=== PATIENT | female | born 1975 | race Caucasian/White ===

== ENCOUNTER 2020-02-14 09:36 | Outpatient (CLI) | payer SELFPAY ==
--- NOTE | 2020-02-14 09:45 | MM_ITS ---
WS: [id number] DIAGNOSTIC BILATERAL DIGITAL MAMMOGRAM WITH CAD RIGHT breast ultrasound, limited HISTORY: RT BREAST LUMP 10-11 O'CLOCK COMPARISON: 01/11/2018 and 09/28/2016 TECHNIQUE: Bilateral craniocaudad, mediolateral oblique, and mediolateral views are submitted. Spot c ompression RIGHT CC and MLO. Computer aided detection utilized. Breast composition: The breasts are extremely dense, which lowers the sensitivity of mammography. Pal pable marker is placed upper outer quadrant of the RIGHT breast. There is underlying dense fibrogland ular tissue. There are benign calcifications in each breast. No distortion. RIGHT breast ultrasound, limited. Ultrasound directed to the 10:00 location, 2 cm from the nipple. There is an anechoic mass measuring 2.0 x 1.5 x 1.5 cm. No solid component. Consistent with a benign cyst. No increased vascularity. German tional mildly hypoechoic nodule is ovoid and 9:00, 5 cm from the nipple with a maximum diameter of 1. 0 cm. This may be benign lymph node or complex cyst. MM/[id number] IMPRESSION: BI-RADS: 2-Benign FOLLOW UP: 1 Year Follow-up
== END 2020-02-14 09:37 | disposition home or self-care (01) ==
LOC: RADSHAW 09:40
PROVIDERS: Visit Provider Nurse Practitioner Family
DX: N63.11 Unspecified lump in the right breast, upper outer quadrant (principal)
CPT/HCPCS: 76642; 77066

== ENCOUNTER 2020-04-26 17:19 | Emergency (ER) | payer SELFPAY ==
[2020-04-26 17:22] VITALS: BP 140/84; PULSE 76; RESP 18; TEMP 36.4; O2SAT 99; BMI 24.8
--- NOTE | 2020-04-26 17:52 | W.ED.EXTPRO ---
HPI - Extremity Problem General: Chief complaint: Extremity Injury, Upper Stated complaint: l side keeps going numb x 3 days Time Seen by Provider: 04/26/20 17:35 History of Present Illness: HPI Narrative: 44-year-old female complains of generalized stiffness and aching predominantly left arm and leg but at times it is both legs. She has had this for months she has been going to the [facility] she feels like it is not really getting any better and probably getting worse. She said she had a positive HAKEEM at the [facility] but has not had any further work-up. She has been using nonsteroidals for but they are not adequate at this point. MD Complaint: extremity pain Onset (ago): month(s) Pain Consistency: constant Location: upper extremity and lower extremity Quality: aching and constant Radiation: none Relieving factors: nothing Exacerbating factors: nothing Associated symptoms: Reports arthralgias and myalgias; Deny chest pain, fever(s), rash or short of breath Review of Systems Const: Denies: fever(s) ENMT: Denies: throat pain, ear or mastoid pain, nasal discharge or nasal congestion Card: Denies: chest pain Resp: Denies: dyspnea, productive cough or non-productive cough GI: Denies: abdominal pain, nausea, vomiting, hematemesis, coffee ground emesis, diarrhea, constipation, bloating, hematochezia or melena : Denies: flank pain, difficulty voiding, dysuria, urinary frequency or urinary urgency Skin/Breast: Denies: rash Physical Exam Const: COMMON NORMALS: no acute distress GENERAL APPEARANCE: cooperative and comfortable ORIENTATION/CONSCIOUSNESS: Yes awake, Yes oriented to person, Yes oriented to place and Yes oriented to time HENMT: COMMON NORMALS: normocephalic, atraumatic and hearing grossly normal bilaterally HEAD & SCALP: normocephalic and atraumatic Eye: COMMON NORMALS: Equal, round and reactive pupils present, EOMs intact bilaterally, conjunctivae normal and no scleral icterus CONJUNCTIVA: Yes conjunctivae normal PUPIL: Yes Equal, round and reactive pupils present Neck/C-Spine: COMMON NORMALS: full ROM, no lymphadenopathy, supple and no JVD Lymph: LYMPHATIC: no lymphadenopathy noted and no lymphedema noted Resp: COMMON NORMALS: normal respiratory effort, No retractions, No use of accessory muscles and clear to auscultation bilaterally AUSCULTATION: clear to auscultation bilaterally Cardio: COMMON NORMALS: no JVD, regular rate, regular rhythm and No murmurs present (Cardio) RATE: regular rate RHYTHM: regular rhythm GI: COMMON NORMALS: Soft to palpation and No hepatosplenomegaly present AUSCULTATION: Yes normoactive bowel sounds PALPATION: Yes Soft to palpation, No Tenderness to palpation present (GI), No Guarding due to palpation present (GI) and Yes No hepatosplenomegaly present Extremity: COMMON NORMALS: normal to inspection, capillary refill normal, no clubbing, cyanosis or edema, no calf tenderness and no pedal edema Neuro: SENSORIUM/ORIENTATION: Yes oriented to person, Yes oriented to place and Yes oriented to time OTHER: Sensation bilaterally upper and lower extremities normal deep tendon reflexes +2/4 patellar and Achilles biceps triceps and brachial radialis sensation normal crusher tender strength normal intrinsic hand strength upper extremity strength is normal examination of the left shoulder there is no impingement sign. Skin: COMMON NORMALS: no rashes or lesions noted GENERAL SKIN EXAM: no rashes or lesions noted Course Vital Signs: Vital signs: Vital Signs Temperature 97.5 F L 04/26/20 17:22 Pulse Rate 76 04/26/20 17:22 Respiratory Rate 18 04/26/20 17:22 Blood Pressure 140/84 04/26/20 17:22 Pulse Oximetry 99 04/26/20 17:22 MDM - Extremity (Nontraumatic) MDM Narrative: Medical decision making narrative: We will start the patient on Medrol Dosepak also use Zanaflex as needed can continue the nonsteroidals case management to refer to rheumatology clinic. This is been a longstanding problem she is just become frustrated with what she feels like is progression of it she has no acute aspect of this no focal neurologic deficits. Discharge Plan Discharge Patient Disposition: Home Clinical Impression: Osteoarthritis, Elevated antinuclear antibody (HAKEEM) level Condition: Stable Prescriptions: New Medrol (Kemar) 4 mg tablets,dose pack See Rx Instructions .ROUTE .COMPLEX Qty: 21 RF: 0 Zanaflex 2 mg capsule 2 mg PO Q6H PRN (Reason: muscle spasticity) Qty: 20 RF: 0 Discharge Orders: Discharge Order (Routine); Ordered 04/26/20 Ordered By: Art Brush Discharge Activity: Increase activity as tolerated Activity Restrictions/Additional Instructions: Case management will call to help you get referred to the rheumatology clinic. Coding Level of Care Code ED Solar Pool Heating Installer for Barbie Saul
--- NOTE | 2020-04-28 12:53 | DCPLANNER ---
manager interventional had message to schedule a follow up appointment for patient with rheumatology. manager interventional called the rheumatolgy clinic, spoke with NATASHA, was asked to fax referral to clinic. manager interventional faxed patients information to clinic. Clinic will call patient with appointment information.
--- NOTE | 2020-05-07 13:00 | DCPLANNER ---
lab manager called the rheumotology clinic to see where referral was at, correctional casework specialist was told that patients information was being reviewed by physician.
--- NOTE | 2020-05-29 12:52 | DCPLANNER ---
engineering program manager called the Rheumotolgy office to confirm that a follow up appointment had been scheduled for patient. engineering program manager was told that when clinic called patient to schedule an appointment, that patient declined the referral.
== END 2020-04-26 18:06 | disposition home or self-care (01) ==
PROVIDERS: Emergency Provider Family Medicine
DX: M19.90 Unspecified osteoarthritis, unspecified site (principal); R79.89 Other specified abnormal findings of blood chemistry
CPT/HCPCS: 12345; 99281

== ENCOUNTER → 2020-05-05 13:16 | Outpatient (BNVA) | payer OTHER, SELFPAY | PROVIDERS: Visit Provider Nurse Practitioner Family | DX: Z20.828 Contact with and (suspected) exposure to other viral communicable diseases (principal); B34.9 Viral infection, unspecified; J06.9 Acute upper respiratory infection, unspecified | CPT/HCPCS: 87635 ==

== ENCOUNTER 2020-05-16 10:42 | Emergency (ER) | payer SELFPAY ==
[2020-05-16 11:06] VITALS: BP 114/76; PULSE 82; RESP 16; TEMP 36.2; O2SAT 98; BMI 25.2
[2020-05-16 11:24] VITALS: O2SAT 98
--- NOTE | 2020-05-16 11:29 | CT_ITS ---
WS: [id number] CT HEAD NONCONTRAST HISTORY: migraine headache with covid, persistent TECHNIQUE: Contiguous axial imaging performed through the brain in 2.5 mm imaging. Bone and soft tiss ue windows. Sagittal and coronal reformats reviewed. All CT scans at [facility] use at le ast one of these dose optimization techniques: automated exposure control; mA and/or kV adjustment pe r patient size (includes targeted exams where dose is matched to clinical indication); or iterative r econstruction. DLP: 764.81 mGy.cm COMPARISON: 03/14/2008 No acute intracranial hemorrhage, midline shift or mass effect. No atrophy or prior infarcts or herniation. Ventricles: Normal size with no hydrocephalus. Paranasal sinuses: As visualized are clear. Mastoid air cells: Well pneumatized. Calvarium and scalp: Skull is intact with no soft tissue edema or swelling. CT/CT head wo con* [id number] IMPRESSION: Negative head CT.
--- NOTE | 2020-05-16 11:33 | W.ED.HA ---
HPI - Headache General: Chief Complaint: Headache Stated Complaint: requesting CT scan for migraines Time Seen by Provider: 05/16/20 11:07 Source: patient Mode of arrival: ambulatory Limitations: no limitations History of Present Illness: HPI Narrative: Patient is a 44-year-old female with a history of migraines who presents to the emergency department with migraine. Symptoms are started for the last 14 days and at the time she was also tested for COVID-19 and was positive. Usually her headaches improve with migraine medication or ibuprofen but this is not working. The ibuprofen helps but never gets rid of the headache and it only gets worse as the day goes by. Headaches are associated with facial numbness and blurred vision. Because of this she was asked to be seen in the emergency department a few days ago but the patient only came back today. MD elicited complaint: headache and migraine Pertinent past history: migraines Onset (ago): day(s) (14) Onset description: gradually Location: diffuse Severity: moderate Quality & Timing: pulsatile Exacerbating factors: none, light and noise Relieving factors: nothing Context: occurred at rest Associated symptoms: Reports loss of vision (blurred vision), nausea, numbness (facial), photophobia and sound sensitivity; Deny chest pain, confusion, cough, diaphoresis, eye pain, eye redness, fever(s), lightheadedness, malaise, neck stiffness, paresthesias, pre-syncope, rash, seizures, short of breath, syncope, vomiting or weakness Treatments prior to arrival: acetaminophen, ibuprofen and migraine medication Review of Systems General: Reports: 10 or more systems reviewed and unremarkable except in HPI and below Const: Denies: fever(s), malaise or diaphoresis Eyes: Denies: change in vision or blurry vision ENMT: Denies: throat pain, enlarged tonsils, odynophagia, hoarseness, mouth pain or swelling of lips/tongue Card: Denies: chest pain, lightheadedness, syncope or pre-syncope Resp: Denies: dyspnea, productive cough or non-productive cough GI: Reports: nausea; Denies: vomiting : Denies: flank pain, difficulty voiding, dysuria, urinary frequency, urinary urgency or urinary hesitancy Musc: Denies: neck pain, back pain or extremity swelling Skin/Breast: Denies: rash Neuro: Denies: confusion Endo: Denies: polyuria, polydipsia or tired all the time PFSH ED PFSH: Social History Smoking and tobacco status: current every day smoker Alcohol intake: never Substance/Drug Use: former Physical Exam Const: COMMON NORMALS: no acute distress, average body habitus, patient oriented x3, no limitations, healthy appearing, alert and well nourished HENMT: COMMON NORMALS: normocephalic, atraumatic and moist oral mucous membranes HEAD & SCALP: normocephalic and atraumatic Eye: COMMON NORMALS: Equal, round and reactive pupils present, EOMs intact bilaterally, conjunctivae normal and no scleral icterus CONJUNCTIVA: Yes conjunctivae normal PUPIL: Yes Equal, round and reactive pupils present DIRECT OPHTHALMOSCOPY: Yes photophobia Neck/C-Spine: COMMON NORMALS: full ROM, supple, no meningeal signs, no JVD and No carotid bruits Resp: COMMON NORMALS: normal respiratory effort, No retractions, No use of accessory muscles, clear to auscultation bilaterally and percussion normal AUSCULTATION: clear to auscultation bilaterally PERCUSSION: percussion normal Cardio: COMMON NORMALS: no JVD, regular rate, regular rhythm, S1 normal heart sound present, S2 normal heart sound present, No gallops present (Cardio), No clicks present (Cardio), No murmurs present (Cardio), No rub (Cardio) and Peripheral pulses 2+ throughout RATE: regular rate RHYTHM: regular rhythm HEART SOUNDS: S1 normal heart sound present and S2 normal heart sound present PERIPHERAL PULSES: Peripheral pulses 2+ throughout GI: COMMON NORMALS: Normal to inspection, nondistended, normoactive bowel sounds present, Soft to palpation, non-tender, No hepatosplenomegaly present, no masses and no bruits PALPATION: Yes Soft to palpation and Yes No hepatosplenomegaly present Extremity: COMMON NORMALS: normal to inspection, full ROM, capillary refill normal, no calf tenderness and no pedal edema Neuro: COMMON NORMALS: patient oriented x3 SENSORIUM/ORIENTATION: Yes alert MENINGEAL SIGNS: Yes no meningeal signs Skin: COMMON NORMALS: no rashes or lesions noted, no wounds, turgor normal, no jaundice, no petechiae and no mottling GENERAL SKIN EXAM: no rashes or lesions noted and turgor normal Course Reevaluation(s): Reevaluation #1: Patient seen. Headache has resolved. Discussed her lab and imaging findings with her. Negative head CT, labs unremarkable. We will discharge her home with no new orders. She voiced understanding and is in agreement with the plan. Time: 14:21 Vital Signs: Vital signs: Vital Signs Temperature 97.2 F L 05/16/20 11:06 Pulse Rate 82 05/16/20 11:06 Respiratory Rate 16 05/16/20 11:06 Blood Pressure 114/76 05/16/20 11:06 Pulse Oximetry 98 05/16/20 11:24 MDM - Headache MDM Narrative: Medical decision making narrative: 44-year-old female patient who presents with migraines that have been ongoing for about 2 weeks. She has a history of migraines and this felt like a typical migraine, however it has lasted much longer than normal. She tested positive for COVID-19 at the same time and so expect her primary care provider wanted her evaluated to make sure this is not a complication of COVID-19 infection. Evaluation in the ED was unremarkable and she is discharged home with no new orders after her migraine headaches resolved following Toradol and Benadryl. Medical Records: Attestation: I reviewed the patient's medical records. Lab Data: Attestation: I reviewed the patient's lab results. Labs: Lab Results 05/16/20 05/16/20 05/16/20 Range/Units 13:20 13:25 13:25 WBC 6.5 (4.0-10.0) 10^3/ uL RBC 4.31 (4.1-5.3) 10^6/u L Hgb 13.5 (11.5-15.3) g/dL Hct 40.7 (37.0-47.0) % MCV 94.4 (81-99) fL MCH 31.3 (28.0-34.0) pg MCHC 33.2 (30.0-36.0) g/dL RDW 12.6 (12.1-15.1) % Plt Count 190 (130-400) 10^3/c mm MPV 10.5 H (7.4-10.4) fL Neut % (Auto) 53.0 % Lymph % (Auto) 38.7 % [place] % (Auto) 6.7 % Eos % (Auto) 0.9 % Baso % (Auto) 0.5 % Neut # (Auto) 3.46 (1.8-7.7) 10^3/u L Lymph # (Auto) 2.5 (0.8-4.8) 10^3/u L [place] # (Auto) 0.4 (0.2-0.9) 10^3/u L Eos # (Auto) 0.1 (0.0-0.8) 10^3/u L Baso # (Auto) 0.0 (0.0-0.1) 10^3/u L Nucleated RBC % (a uto) 0 % Nucleated RBCs # 0.0 /100WBC Sodium 138 (136-145) mmol/L Potassium 4.1 (3.5-5.1) mmol/L Chloride 106 (98-107) mmol/L Carbon Dioxide 23 (22-29) mmol/L Anion Gap 13.1 (5-19) BUN 11 (6-20) mg/dL Creatinine 0.6 (0.5-0.9) mg/dL GFR Calculation 107.6 (90-130) mL/min Glucose 91 (65-115) mg/dL Calculated Osmolal ity 285 (285-295) mOsm/k g Lactate (0.5-2.2) mmol/L Calcium 8.9 (8.5-10.5) mg/dL Total Bilirubin 0.2 (0.15-1.2) mg/dL AST 14 (0-32) U/L ALT 14 (0-33) U/L Alkaline Phosphata se 61 (35-105) IU/L Creatine Kinase 51 (26-192) U/L C-Reactive Protein 0.4 (0.0-4.9) mg/L Total Protein 6.3 L (6.6-8.7) g/dL Albumin 4.0 (3.5-5.2) g/dL Globulin 2.3 (1.3-4.6) g/dL HCG, Qual (Negative) Urine Color Yellow (Yellow) Urine Appearance Clear (CLEAR) Urine pH 5.0 (5-7) Ur Specific Gravit y 1.020 (1.005-1.030) Urine Protein Neg (Negative) Urine Glucose (UA) Norm (Normal) Urine Ketones Negative (Negative) Urine Blood 2+ H (Negative) Urine Nitrate Negative (Negative) Urine Bilirubin Neg (Negative) Urine Urobilinogen Norm (Negative) mg/dL Ur Leukocyte Lucero ase Negative (Negative) Urine RBC 5-10 H (0-2) /hpf Urine WBC None (0-5) /hpf Ur Squamous Epith Cells 15-25 H (0-5) /hpf Amorphous Sediment Not Reportable Urine Bacteria 2+ H (NONE) /hpf 05/16/20 05/16/20 Range/Units 13:25 13:25 WBC (4.0-10.0) 10^3/ uL RBC (4.1-5.3) 10^6/u L Hgb (11.5-15.3) g/dL Hct (37.0-47.0) % MCV (81-99) fL MCH (28.0-34.0) pg MCHC (30.0-36.0) g/dL RDW (12.1-15.1) % Plt Count (130-400) 10^3/c mm MPV (7.4-10.4) fL Neut % (Auto) % Lymph % (Auto) % [place] % (Auto) % Eos % (Auto) % Baso % (Auto) % Neut # (Auto) (1.8-7.7) 10^3/u L Lymph # (Auto) (0.8-4.8) 10^3/u L [place] # (Auto) (0.2-0.9) 10^3/u L Eos # (Auto) (0.0-0.8) 10^3/u L Baso # (Auto) (0.0-0.1) 10^3/u L Nucleated RBC % (a uto) % Nucleated RBCs # /100WBC Sodium (136-145) mmol/L Potassium (3.5-5.1) mmol/L Chloride (98-107) mmol/L Carbon Dioxide (22-29) mmol/L Anion Gap (5-19) BUN (6-20) mg/dL Creatinine (0.5-0.9) mg/dL GFR Calculation (90-130) mL/min Glucose (65-115) mg/dL Calculated Osmolal ity (285-295) mOsm/k g Lactate 0.6 (0.5-2.2) mmol/L Calcium (8.5-10.5) mg/dL Total Bilirubin (0.15-1.2) mg/dL AST (0-32) U/L ALT (0-33) U/L Alkaline Phosphata se (35-105) IU/L Creatine Kinase (26-192) U/L C-Reactive Protein (0.0-4.9) mg/L Total Protein (6.6-8.7) g/dL Albumin (3.5-5.2) g/dL Globulin (1.3-4.6) g/dL HCG, Qual Negative (Negative) Urine Color (Yellow) Urine Appearance (CLEAR) Urine pH (5-7) Ur Specific Gravit y (1.005-1.030) Urine Protein (Negative) Urine Glucose (UA) (Normal) Urine Ketones (Negative) Urine Blood (Negative) Urine Nitrate (Negative) Urine Bilirubin (Negative) Urine Urobilinogen (Negative) mg/dL Ur Leukocyte Lucero ase (Negative) Urine RBC (0-2) /hpf Urine WBC (0-5) /hpf Ur Squamous Epith Cells (0-5) /hpf Amorphous Sediment Urine Bacteria (NONE) /hpf Imaging Data^: CT Head: Radiologist's impression: [place] [address] CT Scan Report Signed Patient: Kathya Montenegro #: [id number] : 1975Acct#:[id number] Age/Sex: 44 / FADM Date: 05/16/20 Loc: ERRoom/Bed: Attending Dr: Ordering Provider/Ordering MD: Carli Adams MD, [facility] [place] Date of Service: 05/16/20 Procedure(s): CT head wo con* [id number] Accession Number(s): [id number] Report Number: [id number] WS: [id number] CT HEAD NONCONTRAST HISTORY: migraine headache with covid, persistent TECHNIQUE: Contiguous axial imaging performed through the brain in 2.5 mm imaging. Bone and soft tissue windows. Sagittal and coronal reformats reviewed. All CT scans at [facility] use at least one of these dose optimization techniques: automated exposure control; mA and/or kV adjustment per patient size (includes targeted exams where dose is matched to clinical indication); or iterative reconstruction. DLP: 764.81 mGy.cm COMPARISON: 03/14/2008 No acute intracranial hemorrhage, midline shift or mass effect. No atrophy or prior infarcts or herniation. Ventricles: Normal size with no hydrocephalus. Paranasal sinuses: As visualized are clear. Mastoid air cells: Well pneumatized. Calvarium and scalp: Skull is intact with no soft tissue edema or swelling. CT/CT head wo con* [id number] IMPRESSION: Negative head CT. Dictated By:Marilyn Tate DO Signed By:Marilyn Tate DOSigned Date/Time:05/16/20 1241 DD/ 1238 Discharge Plan Discharge Patient Disposition: Home Clinical Impression: Migraine Qualifiers: Migraine type: without aura Status migrainosus presence: with status migrainosus Intractability: intractable Qualified Code(s): G43.011 - Migraine without aura, intractable, with status migrainosus Condition: Stable Prescriptions: Continued ibuprofen 800 mg tablet 800 mg PO DAILY PRN (Reason: Pain) RF: 0 1 tab PO DAILY RF: 0 Discharge Orders: Discharge Order (Routine); Ordered 05/16/20 Ordered By: Carli Adams Discharge Diet: Usual diet Discharge Activity: Increase activity as tolerated Patient Instructions: Headache - Migraine (Adult) Activity Restrictions/Additional Instructions: Return for any new or worsening symptoms. Follow-up with your primary care provider within 3 days. Continue your home medications. Coding Level of Care Code ED Mobile Lounge Driver for Barbie Fwd Exam Comprehensive
[2020-05-16] MEDS: ketorolac 30 mg/mL INJ IVP (13:37)
[2020-05-16] MEDS: diphenhydrAMINE 50 mg/mL SDV 1mL IVP (13:37)
[2020-05-16 13:46] LABS: Basophils % 0.5 %; Eosinophils # 0.1 10^3/uL (0.0-0.8); Eosinophils % 0.9 %; Hematocrit 40.7 % (37.0-47.0); Hemoglobin 13.5 g/dL (11.5-15.3); Lymphocytes # 2.5 10^3/uL (0.8-4.8); Lymphocytes % 38.7 %; Mean Corpuscular HGB Conc 33.2 g/dL (30.0-36.0); Mean Corpuscular Hemoglobin 31.3 pg (28.0-34.0); Mean Corpuscular Volume 94.4 fL (81-99); Mean Platelet Volume 10.5 fL (7.4-10.4); Monocytes # 0.4 10^3/uL (0.2-0.9); Monocytes % 6.7 %; Neutrophils # 3.46 10^3/uL (1.8-7.7); Nucleated Red Blood Cells % 0 %; Platelet Count 190 10^3/cmm (130-400); Red Blood Count 4.31 10^6/uL (4.1-5.3); Red Cell Distribution Width 12.6 % (12.1-15.1); White Blood Count 6.5 10^3/uL (4.0-10.0)
[2020-05-16 13:54] LABS: HCG, Serum Qual Negative (Negative)
[2020-05-16 13:55] LABS: Add Urine Microscopic? YES; Bilirubin Urine Neg (Negative); Blood Urine 2+ (Negative); Glucose Urine UA Norm (Normal); Ketones Urine Negative (Negative); Leukocyte Esterase Urine Negative (Negative); Nitrate Urine Negative (Negative); Protein Urine Neg (Negative); Urine Appearance Clear (CLEAR); Urine Color Yellow (Yellow); Urobilinogen Urine Norm (Negative)
[2020-05-16 14:00] LABS: Lactate (Lactic Acid level) 0.6 mmol/L (0.5-2.2)
[2020-05-16 14:01] LABS: Alanine Aminotransferase 14 U/L (0-33); Alkaline Phosphatase 61 IU/L (35-105); Anion Gap 13.1 (5-19); Aspartate Amino Transferase 14 U/L (0-32); Blood Urea Nitrogen 11 mg/dL (6-20); C Reactive Protein 0.4 mg/L (0.0-4.9); Calcium 8.9 mg/dL (8.5-10.5); Carbon Dioxide 23 mmol/L (22-29); Chloride 106 mmol/L (98-107); Creatine Phosphokinase 51 U/L (26-192); Globulin 2.3 g/dL (1.3-4.6); Glomerular Filtration Rate 107.6 mL/min (90-130); Glucose 91 mg/dL (65-115); Osmolality Calculated 285 mOsm/kg (285-295); Potassium 4.1 mmol/L (3.5-5.1); Sodium 138 mmol/L (136-145); Total Bilirubin 0.2 mg/dL (0.15-1.2); Total Protein 6.3 g/dL (6.6-8.7)
[2020-05-16 14:04] LABS: Add Urine Culture? No; Bacteria Urine 2+ /hpf; Squamous Epithelial Cell Urine 15-25 /hpf (0-5)
[2020-05-16 14:44] VITALS: PULSE 67; RESP 18; O2SAT 98
== END 2020-05-16 14:45 | disposition home or self-care (01) ==
PROVIDERS: Emergency Provider Family Medicine
DX: G43.011 Migraine without aura, intractable, with status migrainosus (principal); F17.210 Nicotine dependence, cigarettes, uncomplicated
CPT/HCPCS: 12345; 70450; 80053; 81001; 82550; 83605; 84703; 85025; 86140; 96374; 96375; 99282; 99283; J1200; J1885

== ENCOUNTER → 2021-02-27 10:49 | Outpatient (BNVA) | payer OTHER, SELFPAY | PROVIDERS: Visit Provider Nurse Practitioner Family | DX: Z20.822 Contact with and (suspected) exposure to COVID-19 (principal) | CPT/HCPCS: 87635 ==

== ENCOUNTER → 2021-06-27 17:44 | Outpatient (BNVA) | payer SELFPAY | PROVIDERS: Visit Provider Family Medicine | DX: M25.511 Pain in right shoulder (principal) | CPT/HCPCS: 73030 ==

== ENCOUNTER → 2021-10-21 11:12 | Outpatient (BNVA) | payer SELFPAY | PROVIDERS: Visit Provider Registered Nurse Neonatal Intensive Care | DX: N39.0 Urinary tract infection, site not specified (principal) | CPT/HCPCS: 81000 ==

== ENCOUNTER 2022-02-07 20:20 | Emergency (ER) | payer MEDICAID, SELFPAY ==
[2022-02-07 20:25] VITALS: BP 117/80; PULSE 91; RESP 16; TEMP 36.4; O2SAT 97
--- NOTE | 2022-02-07 21:23 | CTR_ITS ---
PROCEDURE INFORMATION: Exam: CT Abdomen And Pelvis With Contrast Exam date and time: 02/07/2022 9:50 PM Age: 46 years old Clinical indication: Other: Rectal bleeding; Abdominal pain; Prior surgery; Surgery date: 6+ months; Surgery type: Partial hysterectomy, appendectomy; Additional info: Rectal bleeding abdominal pain TECHNIQUE: Imaging protocol: Computed tomography of the abdomen and pelvis with contrast. Radiation optimization: All CT scans at this facility use at least one of these dose optimization techniques: automated exposure control; mA and/or kV adjustment per patient size (includes targeted exams where dose is matched to clinical indication); or iterative reconstruction. Contrast material: OMNI 350; Contrast volume: 80 ml; Contrast route: INTRAVENOUS (IV); COMPARISON: CT abdomen pelvis wo/w [id number] 06/26/2015 10:47 AM RADIATION DOSE METRICS: Total DLP (mGy-cm): 501234 FINDINGS: Liver: Normal. No mass. Gallbladder and bile ducts: Normal. No calcified stones. No ductal dilation. Pancreas: Normal. No ductal dilation. Spleen: Normal. No splenomegaly. Adrenal glands: Normal. No mass. Kidneys and ureters: Normal. No hydronephrosis. Stomach and bowel: Unremarkable. No obstruction. No mucosal thickening. Appendix: Absent. Intraperitoneal space: Unremarkable. No free air. No significant fluid collection. Vasculature: Unremarkable. No abdominal aortic aneurysm. Lymph nodes: Unremarkable. No enlarged lymph nodes. Urinary bladder: Unremarkable as visualized. Reproductive: Hysterectomy. Bones/joints: Unremarkable. No acute fracture. Soft tissues: Unremarkable. CT/CT abdomen pelvis w con* [id number] IMPRESSION: Negative for acute abdominopelvic abnormality.
--- NOTE | 2022-02-07 21:28 | ED_ITS ---
HPI - General Adult General: Chief complaint: Vaginal Bleeding Stated complaint: ABD Pain\Vaginal Bleeding Time Seen by Provider: 02/07/22 20:48 History of Present Illness: 46-year-old female presenting with what she says is rectal bleeding and vaginal bleeding. She has a history of prior hysterectomy. She presents with abdominal pain for the past week. She says that it hurts on the right side worse than left. She has noticed some bright red rectal bleeding as well. Passage of clots 1 time. No dark stools. She says she has had a small amount of vaginal bleeding as well. No fever. Multiple belly surgeries including appendectomy and hysterectomy. Onset (ago): day(s) Location: abdomen Radiation: non-radiation Severity: moderate Quality: stabbing Associated symptoms: Reports nausea; Deny chest pain, cough, dyspnea, fevers/chills, headache(s), rash or vomiting Treatments prior to arrival: none Review of Systems Const: Denies: fever(s) ENMT: Denies: throat pain Card: Denies: chest pain Resp: Denies: dyspnea, productive cough or non-productive cough GI: Reports: nausea, rectal pain and hematochezia; Denies: vomiting or melena : Reports: vaginal bleeding; Denies: flank pain or difficulty voiding Skin/Breast: Denies: rash Neuro: Denies: headache(s) PFS ED PFSH: Social History Smoking and tobacco status: current every day smoker Alcohol intake: never Physical Exam Const: GENERAL APPEARANCE: cooperative HENMT: COMMON NORMALS: normocephalic, atraumatic and Normal external nose present HEAD & SCALP: normocephalic and atraumatic NOSE: Normal external nose present Eye: COMMON NORMALS: Equal, round and reactive pupils present and EOMs intact bilaterally PUPIL: Yes Equal, round and reactive pupils present Neck/C-Spine: GENERAL: Yes trachea midline Chest: CHEST: Yes Symmetrical chest wall rise Resp: COMMON NORMALS: normal respiratory effort, No use of accessory muscles and clear to auscultation bilaterally AUSCULTATION: clear to auscultation bilaterally Cardio: COMMON NORMALS: regular rate and regular rhythm RATE: regular rate RHYTHM: regular rhythm GI: COMMON NORMALS: Normal to inspection, nondistended, normoactive bowel sounds present PALPATION: Yes Tenderness to palpation present (GI) (Diffusely, out of proportion to exam) Extremity: COMMON NORMALS: no pedal edema Neuro: [place] COMA SCALE: document GCS findings [place] coma scale eye opening: Spontaneous [place] coma scale verbal response: Orientated [place] coma scale motor response: Obey commands [place] coma scale total score: 15 Course Vital Signs: Vital signs: Vital Signs Temperature 97.6 F 02/07/22 23:24 Pulse Rate 87 02/07/22 23:24 Respiratory Rate 16 02/07/22 23:24 Blood Pressure 121/75 02/07/22 23:24 Pulse Oximetry 98 02/07/22 23:24 Oxygen Delivery Me thod 02/07/22 23:24 MDM - General Adult Medical Decision Making 46-year-old female with right-sided lower quadrant pain, and some rectal bleeding. There is no evidence of vaginal bleeding on speculum exam. Wet prep was sent and is negative. GC and Chlamydia are pending. CBC is normal. BMP is normal. Liver enzymes are normal. CT is negative. She will need PCP follow-up for repeat CBC due to the bleeding. Case management has been consulted. She will be allowed discharge. Lab Data : 02/07/22 21:23 02/07/22 21: Radiology Impressions Abdomen/Pelvis CT 02/07/22 21: IMPRESSION: Negative for acute abdominopelvic abnormality. Laboratory Results WBC 5.5 10^3/uL (4.0-10.0) 02/07/22 21: RBC 4.59 10^6/uL (4.1-5.3) 02/07/22 21: Hgb 14.0 g/dL (11.5-15.3) 02/07/22 21: Hct 42.9 % (37.0-47.0) 02/07/22: MCV 93.5 fl (81-99) 02/07/22 21: MCH 30.5 pg (28.0-34.0) 02/07/22 21: MCHC 32.6 g/dL (30.0-36.0) 02/07/22 21: RDW 12.8 % (12.1-15.1) 02/07/22 21: Plt Count 221 10^3/cmm (130-400) 02/07/22: MPV 9.9 fL (7.4-10.4) 02/07/22 21: Neut % (Auto) 45.8 % 02/07/22 21: Lymph % (Auto) 45.8 % 02/07/22 21: [place] % (Auto) 6.4 % 02/07/22 21: Eos % (Auto) 1.1 % 02/07/22 21: Baso % (Auto) 0.7 % 02/07/22 21: Neut # (Auto) 2.50 10^3/uL (1.8-7.7) 02/07/22 21: Lymph # (Auto) 2.5 10^3/uL (0.8-4.8) 02/07/22: [place] # (Auto) 0.4 10^3/uL (0.2-0.9) 02/07/22 21: Eos # (Auto) 0.1 10^3/uL (0.0-0.8) 02/07/22: Baso # (Auto) 0.0 10^3/uL (0.0-0.1) 02/07/22 21: Nucleated RBC % (auto) 0 % 02/07/22: Nucleated RBCs # 0.0 /100WBC 02/07/22 21: PT 13.20 SECONDS (12.1-14.9) 02/07/22 21: INR 0.97 (0.8-1.2) 02/07/22 21: Sodium 142 mmol/L (136-145) 02/07/22 21: Potassium 3.8 mmol/L (3.5-5.1) 02/07/22 21: Chloride 106 mmol/L (98-107) 02/07/22 21: Carbon Dioxide 28 mmol/L (22-29) 02/07/22 21: Anion Gap 11.8 (5-19) 02/07/22 21: BUN 13 mg/dL (6-20) 02/07/22 21: Creatinine 0.7 mg/dL (0.5-0.9) 02/07/22 21: GFR Calculation 89.3 mL/min (90-130) L 02/07/22 21: Glucose 83 mg/dL (65-115) 02/07/22 21: Calculated Osmolality 293 mOsm/kg (285-295) 02/07/22 21: Calcium 9.4 mg/dL (8.5-10.5) 02/07/22 21: Total Bilirubin 0.4 mg/dL (0.15-1.2) 02/07/22 21: AST 14 U/L (0-32) 02/07/22: ALT 11 U/L (0-33) 02/07/22 21: Alkaline Phosphatase 69 U/L (35-105) 02/07/22 21: C-Reactive Protein 3.0 mg/L (0.0-4.9) 02/07/22: Total Protein 6.9 g/dL (6.6-8.7) 02/07/22: Albumin 4.2 g/dL (3.5-5.2) 02/07/22: Globulin 2.7 g/dL (1.3-4.6) 02/07/22 21: Urine Color Yellow (Yellow) 02/07/22 22:52 Urine Appearance Clear (CLEAR) 02/07/22 22:52 Urine pH 6 (5-7) 02/07/22 22:52 Ur Specific [place] 1.015 (1.005-1.030) 02/07/22 22:52 Urine Protein Neg (Negative) 02/07/22 22:52 Urine Glucose (UA) Norm (Normal) 02/07/22 22:52 Urine Ketones Negative (Negative) 02/07/22 22:52 Urine Blood 2+ (Negative) H 02/07/22 22:52 Urine Nitrate Negative (Negative) 02/07/22 22:52 Urine Bilirubin Neg (Negative) 02/07/22 22:52 Urine Urobilinogen Neg mg/dL (Negative) 02/07/22 22:52 Ur Leukocyte Esterase Negative (Negative) 02/07/22 22:52 Urine RBC 5-10 /hpf (0-2) H 02/07/22 22:52 Urine WBC 0-4 /hpf (0-5) H 02/07/22 22:52 Ur Squamous Epith Cells 15-25 /hpf (0-5) H 02/07/22 22:52 Amorphous Sediment Not Reportable 02/07/22 22:52 Urine Bacteria 2+ /hpf (NONE) H 02/07/22 22:52 Urine Mucus 2+ /hpf 02/07/22 22:52 Discharge Plan Discharge Patient Disposition: Home Clinical Impression: Lower GI bleed, Abdominal pain Condition: Stable Prescriptions: New ketorolac 10 mg tablet 10 mg PO TID PRN (Reason: pain) Qty: 10 0RF ondansetron 4 mg film 4 mg PO DAILY PRN (Reason: nausea and vomiting) Qty: 10 0RF Anusol-HC 25 mg suppository 25 mg VA BID Qty: 6 0RF Discontinued naproxen 500 mg tablet 500 mg PO BID 7 Days Qty: 14 0RF No Action cyclobenzaprine 5 mg tablet 5 mg PO TID PRN (Reason: muscle spasm) 7 Days Qty: 21 0RF nitrofurantoin monohyd/m-cryst [Macrobid] 100 mg capsule 100 mg PO Q12H 5 Days Qty: 10 0RF Rx Instructions: must administer with a meal/food Discharge Orders: Discharge ED (Routine); Ordered 02/07/22 Ordered By: Ze Bryant Patient Instructions: Rectal Bleeding (ED), Abdominal Pain (ED) Activity Restrictions/Additional Instructions: Medication as directed. Return for worsening bleeding despite treatment, worsening pain despite treatment, fever greater than 100, other concerning symptoms. Follow-up with your doctor. Case management has been ordered to make you a follow-up appointment this coming week. Coding Level of Care Code ED Sales Incentive Analyst for Barbie Fwd Exam Comprehensive
[2022-02-07 21:39] LABS: Basophils % 0.7 %; Eosinophils # 0.1 10^3/uL (0.0-0.8); Eosinophils % 1.1 %; Hematocrit 42.9 % (37.0-47.0); Lymphocytes # 2.5 10^3/uL (0.8-4.8); Lymphocytes % 45.8 %; Mean Corpuscular HGB Conc 32.6 g/dL (30.0-36.0); Mean Corpuscular Hemoglobin 30.5 pg (28.0-34.0); Mean Corpuscular Volume 93.5 fl (81-99); Mean Platelet Volume 9.9 fL (7.4-10.4); Monocytes # 0.4 10^3/uL (0.2-0.9); Monocytes % 6.4 %; Neutrophils % 45.8 %; Nucleated Red Blood Cells % 0 %; Platelet Count 221 10^3/cmm (130-400); Red Blood Count 4.59 10^6/uL (4.1-5.3); Red Cell Distribution Width 12.8 % (12.1-15.1); White Blood Count 5.5 10^3/uL (4.0-10.0)
[2022-02-07 21:52] LABS: INR 0.97 (0.8-1.2)
[2022-02-07] MEDS: iohexol 350 mg/mL 100 mL Btl IV (21:58)
[2022-02-07 22:06] LABS: Alanine Aminotransferase 11 U/L (0-33); Albumin Level 4.2 g/dL (3.5-5.2); Alkaline Phosphatase 69 U/L (35-105); Anion Gap 11.8 (5-19); Aspartate Amino Transferase 14 U/L (0-32); Blood Urea Nitrogen 13 mg/dL (6-20); Calcium 9.4 mg/dL (8.5-10.5); Carbon Dioxide 28 mmol/L (22-29); Chloride 106 mmol/L (98-107); Globulin 2.7 g/dL (1.3-4.6); Glomerular Filtration Rate 89.3 mL/min (90-130); Glucose 83 mg/dL (65-115); Osmolality Calculated 293 mOsm/kg (285-295); Potassium 3.8 mmol/L (3.5-5.1); Sodium 142 mmol/L (136-145); Total Bilirubin 0.4 mg/dL (0.15-1.2); Total Protein 6.9 g/dL (6.6-8.7)
[2022-02-07 23:13] LABS: Add Urine Microscopic? YES; Bilirubin Urine Neg (Negative); Blood Urine 2+ (Negative); Glucose Urine UA Norm (Normal); Ketones Urine Negative (Negative); Leukocyte Esterase Urine Negative (Negative); Nitrate Urine Negative (Negative); Protein Urine Neg (Negative); Specific Gravity, Urine 1.015 (1.005-1.030); Urine Appearance Clear (CLEAR); Urine Color Yellow (Yellow); Urobilinogen Urine Neg (Negative); pH Urine 6 (5-7)
[2022-02-07 23:14] LABS: Add Urine Culture? No; Bacteria Urine 2+ /hpf; Mucus Urine 2+ /hpf; Squamous Epithelial Cell Urine 15-25 /hpf (0-5); WBC Urine 0-4 /hpf (0-5)
[2022-02-07 23:24] VITALS: BP 121/75; PULSE 87; RESP 16; TEMP 36.4; O2SAT 98
[2022-02-07] MEDS: sodium chloride 0.9% 1,000 ML 999 ML IV (23:25)
[2022-02-08 00:06] VITALS: RESP 20
[2022-02-08] MEDS: ondansetron 2 mg/ML SDV 2 mL 4 MG IVP (00:06)
[2022-02-08] MEDS: morphine 4 mg/mL SDV 1 mL IVP (00:06)
[2022-02-08] MEDS: ketorolac 30 mg/mL INJ 15 MG IVP (00:06)
--- NOTE | 2022-02-09 10:53 | DCPLANNER ---
sales property manager had message to speak with patient about getting established with a primary care physician. sales property manager unable to speak with patient at this time.
== END 2022-02-08 00:37 | disposition home or self-care (01) ==
PROVIDERS: Emergency Provider Emergency Medicine
DX: K92.2 Gastrointestinal hemorrhage, unspecified (principal); R10.9 Unspecified abdominal pain; F17.210 Nicotine dependence, cigarettes, uncomplicated
CPT/HCPCS: 74177; 80053; 81001; 85025; 85610; 86140; 87210; 96361; 96374; 96375; 99285; J1885; J2270; J2405; J7030; Q9967

== ENCOUNTER → 2022-06-30 11:15 | Outpatient (BNVA) | payer MEDICAID, SELFPAY | PROVIDERS: Visit Provider Family Medicine | DX: G89.29 Other chronic pain (principal); M25.50 Pain in unspecified joint; M54.50 Low back pain, unspecified; N39.0 Urinary tract infection, site not specified; Z11.4 Encounter for screening for human immunodeficiency virus [HIV]; Z11.59 Encounter for screening for other viral diseases; Z76.89 Persons encountering health services in other specified circumstances; L02.214 Cutaneous abscess of groin; R30.0 Dysuria | CPT/HCPCS: 80053; 80061; 81000; 84439; 84443; 85025; 86140; 86431; 86803; 87077; 87086; 87184; 87522; 87806 ==

== ENCOUNTER → 2022-08-12 15:09 | Outpatient (BNVA) | payer MEDICAID, SELFPAY | PROVIDERS: PCP Nurse Practitioner Family; Visit Provider Surgery | DX: L02.214 Cutaneous abscess of groin (principal); R19.09 Other intra-abdominal and pelvic swelling, mass and lump | CPT/HCPCS: 87070; 87075; 87205 ==

== ENCOUNTER 2024-05-13 17:24 | Emergency (ER) | payer MEDICAID, SELFPAY ==
[2024-05-13 17:27] VITALS: BP 137/93; PULSE 93; RESP 18; TEMP 36.4; O2SAT 98; BMI 32.3
--- NOTE | 2024-05-13 17:45 | CTR_ITS ---
PROCEDURE INFORMATION: Exam: CT Head Without Contrast Exam date and time: 05/13/2024 5:52 PM Age: 48 years old Clinical indication: Injury or trauma; Blunt trauma (contusions or hematomas); Patient HX: Patient accidentally struck head against a door two days ago and is C/O of persistent burning sensation to around top of head. ; Additional info: Head injury TECHNIQUE: Imaging protocol: Computed tomography of the head without contrast. Radiation optimization: All CT scans at this facility use at least one of these dose optimization techniques: automated exposure control; mA and/or kV adjustment per patient size (includes targeted exams where dose is matched to clinical indication); or iterative reconstruction. COMPARISON: CT head wo con* [id number] 05/16/2020 12:25 PM RADIATION DOSE METRICS: Total DLP (mGy-cm): 992.68 FINDINGS: Brain: No intracranial hemorrhage. No evidence of acute territorial infarct or cerebral edema. No mass effect or midline shift. Cerebral ventricles: No hydrocephalus. Paranasal sinuses: Mild mucosal thickening of the paranasal sinuses. No air-fluid levels. Mastoid air cells: Underpneumatized right mastoid air cells. Bilateral mastoid air cells are clear. Bones: The calvarium is intact. Soft tissues: Soft tissues are unremarkable as visualized. Other findings: There is cerumen within the right external acoustic canal. CT/CT head wo con* [id number] IMPRESSION: No acute intracranial findings.
--- NOTE | 2024-05-13 18:13 | W.ED.FALL ---
HPI - Fall General: Chief Complaint: Fall Stated Complaint: fell - burning in head and face swelling Time Seen by Provider: 05/13/24 18:06 Source: patient Mode of arrival: ambulatory Limitations: no limitations History of Present Illness: 48-year-old female states she had fell 2 days ago. She states that she had hit her head on a door states that since then she has been having headaches and no loss conscious states she does have a hematoma to top of her head rates her headache a 6 out of 10 denies any neck pain denies any other injuries Associated symptoms-after fall: Reports headache(s); Denies abdominal pain, chest pain or neck pain Related Data Home Medications Medication Instructions Recorded Confirmed herbal vitamins as directed 08/12/22 02/03/23 Allergies Allergy/AdvReac Type Severity Reaction Status Date / Time Sulfa (Sulfonamide Allergy ADR-Itching Verified 05/13/24 17:32 Antibiotics) venom-wasp Allergy ALGY-Anaphy Verified 05/13/24 17:32 laxis Review of Systems Const: Denies: fever(s), chills, body aches or change in appetite Eyes: Denies: blurry vision or eye discomfort ENMT: Denies: throat pain or dental pain Card: Denies: chest pain Resp: Denies: dyspnea GI: Denies: abdominal pain, nausea, vomiting or diarrhea Musc: Denies: neck pain or back pain Skin/Breast: Denies: rash Neuro: Reports: headache(s) [facility] ED PFSH: Medical History Psychiatric care Surgical History Hx of hysterectomy History of surgical removal of lesion left side Dr. Araujo History of lumpectomy of right breast Dr. Ocampo Hx of appendectomy History of placement of ear tubes Family History Mother Cancer Hypertension Father Diabetes Social History Smoking and tobacco/nicotine status: current every day tobacco/nicotine user cigarettes Packs smoked per day: 2 Alcohol intake: former Substance/Drug Use: former Female Reproductive History: Spontaneous abortions: No Physical Exam Const: COMMON NORMALS: no acute distress, patient oriented x3 and healthy appearing HENMT: COMMON NORMALS: normocephalic HEAD & SCALP: normocephalic OTHER: Tenderness to top of the head Eye: COMMON NORMALS: Equal, round and reactive pupils present and EOMs intact bilaterally PUPIL: Yes Equal, round and reactive pupils present Neck/C-Spine: COMMON NORMALS: full ROM and supple Chest: COMMONS NORMALS: normal inspection of the chest Resp: COMMON NORMALS: normal respiratory effort Cardio: COMMON NORMALS: regular rate, regular rhythm and No murmurs present (Cardio) RATE: regular rate RHYTHM: regular rhythm Extremity: COMMON NORMALS: normal to inspection and full ROM Neuro: COMMON NORMALS: patient oriented x3, moves all extremities and no focal motor deficits Psych: COMMON NORMALS: mental status grossly normal, Normal thought process present and cooperative THOUGHT PROCESS: Normal thought process present Skin: COMMON NORMALS: no rashes or lesions noted and no wounds GENERAL SKIN EXAM: no rashes or lesions noted Course Vital Signs: Vital signs: Vital Signs Temperature 97.6 F 05/13/24 17:27 Pulse Rate 93 05/13/24 17:27 Respiratory Rate 18 05/13/24 17:27 Blood Pressure 137/93 05/13/24 17:27 Pulse Oximetry 98 05/13/24 17:27 Oxygen Delivery Me thod Room Air 05/13/24 17:27 MDM - Fall Medical Decision Making Patient presents with with a closed head injury imaging here is negative patient stable for discharge follow-up PCP return if worsening. Medical Records I reviewed the patient's medical records. Lab Data Radiology Impressions Head CT 05/13/24 17:45 IMPRESSION: No acute intracranial findings. All radiology interpretation(s) finalized by discharge Discharge Plan Discharge Patient Disposition: Home Clinical Impression: Closed head injury Condition: Stable Prescriptions: No Action herbal vitamins as directed Discharge Orders: Discharge ED (Routine); Ordered 05/13/24 Ordered By: Riki Carpenter Referrals: Yvonne Magaña [Primary Care Provider] - 4-7 days Discharge Diet: Advance as tolerated Discharge Activity: Resume usual activity Patient Instructions: Head Injury (ED) Coding Level of Care Code ED Parks And Recreation Worker for Barbie Saul
[2024-05-13] MEDS: HYDROcodone-acetaminophen 5-325 mg Tablet 1 TAB PO (18:14)
--- NOTE | 2024-05-13 18:17 | PC.NURSE ---
PT PRESENTS WITH COMPLAINT OF FALL 2 DAYS AGO. PT STATES SHE FELL BACKWARDS AND HIT HER HEAD ON THE DOOR. PT HAS PALPABLE LUMP ON TOP OF HER HEAD. PT DENIES LOC. PT STATES HER HEAD IS BURNING. PT IS ALERT AND ORIENTED WITH EVEN, UNLABORED RESPIRATIONS WITH PATENT AIRWAY.
== END 2024-05-13 19:08 | disposition home or self-care (01) ==
PROVIDERS: Emergency Provider Emergency Medicine; PCP Registered Nurse
DX: S09.8XXA Other specified injuries of head, initial encounter (principal); W22.8XXA Striking against or struck by other objects, initial encounter; F17.210 Nicotine dependence, cigarettes, uncomplicated
CPT/HCPCS: 70450; 99284

== ENCOUNTER → 2024-12-06 11:05 | Outpatient (BNVA) | payer OTHER, SELFPAY | PROVIDERS: PCP Registered Nurse; Visit Provider Psychiatry & Neurology Psychiatry | DX: F43.12 Post-traumatic stress disorder, chronic (principal) | CPT/HCPCS: 80061; 83036 ==

== ENCOUNTER 2025-02-13 13:46 | Emergency (ER) | payer MEDICAID, SELFPAY ==
[2024-12-10 09:27] VITALS: BP 116/84; BMI 26.8
--- OUTSIDE RECORDS SUMMARY | 2025-02-13 13:50 | XMS_ITS | Encounter Summary ---
[facility] Organization [facility] Address [address] [place] [address] Care Team Providers Care Vendor Manager Name Role Phone Fidencio Baez MD Primary Care Provider [phone] Encounter Details Date Type Department Care Team (Late st Contact Info) Description 02/12/2025 External Device Data [facility] ABSTRACTION Provider, Abstract NO ADDRESS ON FILE Social History Tobacco Use Types Packs/Day Years Used Date Smoking Tobacco: Every Day Cigarettes Smokeless Tobacco: Never Alcohol Use Standard Drinks/Week Comments Not Currently 0 (1 standard drink = 0.6 oz pur e alcohol) Feeling Safe Answer Date Recorded Are you in a relationship wi th someone who hurts you emotionally and/or physically? 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
--- OUTSIDE RECORDS SUMMARY | 2025-02-13 13:50 | XMS_ITS | Encounter Summary ---
Author Organization [facility] Address [address] [place] [address] Care Team Providers Care Ore Storage Drier Name Role Phone Unavailable Primary Care Provider Unavailabl e Encounter Details Date Type Department Care Team ([facility] st Contact Info) Description 04/30/2019 Lab Requisition [facility] Services [place] [address] [place] [id number] Alfred Farris, [place] NO ADDRESS ON FILE Social History Tobacco Use Types Packs/Day Years Used Date Smoking Tobacco: Never Assessed Comments Unknown Sex and Gender Information Value Date Recorded Sex Assigned at Not on file 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 Gender Identity Not on file Sexual Orientation Not on file documented as of this encounter Plan of Treatment Not on file documented as of this encounter Procedures Procedure Name Priority Date/Time Associated Diagnosis Comments SEDIMENTATION RATE Routine 04/30/2019 8: 18 PM COAL TOWER OPERATOR RHEUMATOID FACTOR Routine 04/30/2019 8:1 8 PM COAL TOWER OPERATOR HAKEEM SCREEN W/REFLEX Routine 04/30/2019 8 :18 PM COAL TOWER OPERATOR documented in this encounter Results * HAKEEM SCREEN W/REFLEX (04/30/2019 8:18 PM COAL TOWER OPERATOR) HAKEEM SCREEN Negative Negative 05/02/2019 4:11 PM COAL TOWER OPERATOR [facility] Blood 04/30/2019 8:18 PM COAL TOWER OPERATOR 04/30/2019 8:18 PM COAL TOWER OPERATOR Alfred VILLATORO CHEMISTRY ORDERABLES Final Re sult [facility] CLIA# [id number] [address] [place], [place] [id number] * SEDIMENTATION RATE (04/30/2019 8:18 PM COAL TOWER OPERATOR) ESR (SEDIMENTATION RATE) 3 0 - 20 mm/Hr 04/30/2019 9:11 PM COAL TOWER OPERATOR [facility] Blood 04/30/2019 8:18 PM COAL TOWER OPERATOR 04/30/2019 8:18 PM COAL TOWER OPERATOR Alfred VILLATORO HEMATOLOGY ORDERABLES Final R esult Performing Organization Address [facility] Co de Phone Number [facility] CLIA # [id number] [address] [place] [id number] * RHEUMATOID FACTOR (04/30/2019 8:18 PM COAL TOWER OPERATOR) Pathologist [facility] RHEUMATOID FACTOR 10 <14 IU/mL 05/01/2019 11:33 PM COAL TOWER OPERATOR [facility] Blood 04/30/2019 8:18 PM COAL TOWER OPERATOR 04/30/2019 8:18 PM COAL TOWER OPERATOR Alfred VILLATORO CHEMISTRY ORDERABLES Final Re sult Performing Organization Address City/[facility]/ZIP Co de Phone Number [facility] CLIA# [id number] [address] [place], [place] [id number] documented in this encounter Visit Diagnoses Not on filedocumented in this encounter
--- OUTSIDE RECORDS SUMMARY | 2025-02-13 13:50 | XMS_ITS | Encounter Summary ---
Author Organization [facility] Address 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
--- OUTSIDE RECORDS SUMMARY | 2025-02-13 13:50 | XMS_ITS | Clinical Summary ---
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
--- OUTSIDE RECORDS SUMMARY | 2025-02-13 13:50 | XMS_ITS | Encounter Summary ---
Author Organization [facility] Address [address] [place] [address] Care Team Providers Care Carpenter Wooden Tank Erecting Name Role Phone Unavailable Primary Care Provider Unavailabl e Reason for Referral * MRI (Routine) - Closed Specialty Diagnoses / Procedures Referred By Ilya burnett Referred To Contact Radiology Diagnoses Posterior pain of hip, right Procedures MRI HIP WO CONTRAST RIGHT Shanika Bates FNP [address] [address] Phone: tel: fax: [facility] [address] [facility] [address] [place] [address] Phone: tel: fax: Referral ID Status Reason Start Date Expiration Date V isits Requested Visits Authorized [id number] Closed [facility] View CTS to Schedule (SGF) 04/10/2019 05/10/2020 1 1 Encounter Details Date Type Department Care Team ([facility] st Contact Info) Description 04/10/2019 Ancillary Orders [facility] Centralized Scheduling [address] [facility] [address] [place] [address] Shanika Bates FNP [address] [place] [address] Posterior pain of hip, right Social History Tobacco Use Types Packs/Day Years Used Date Smoking Tobacco: Never Assessed Comments Unknown Sex and Gender Information Value Date Recorded Sex Assigned at Not on file 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 Exam: MRI HIP WO CONTRAST RIGHT Date/Time of Exam: 04/18/2019 5:10 PM Reason For Exam: See Diagnosis. Diagnosis: Posterior pain of hip, right. Technique: MRI of the right hip was performed without the administration of intravenous contrast. Comparison: None. Findings: The exam is degraded by motion artifact. There is no evidence of an acute fracture, avascular necrosis or focal bony lesion. The hip joints are anatomically aligned. There is a mild degree of lateral acetabular hypertrophic change compatible with early degenerative changes. There is a physiologic amount of symmetric joint fluid. No paralabral cyst formation is identified. The pubic symphysis is anatomically aligned and demonstrates moderate degenerative changes. The sacroiliac joints are anatomically aligned and appear well-maintained. Mild degenerative disc desiccation is present involving the partially visualized lumbar spine. A mild degree of sacral Tarlov cystic changes are present. The pelvic musculature is symmetric without edema or significant atrophy. The pelvic and proximal femoral tendon origins and attachments appear intact. There is no abnormal bursal distention. There is a trace amount of nonspecific free pelvic fluid which is within the physiologic range. No significant subcutaneous soft tissue pathology is identified. IMPRESSION: 1. No acute osseous abnormality. 2. Mild degenerative changes involving the hips. 3. 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 [id number] Narrative Procedure Note Mckay Chadwick, - 04/19/2019 IMPRESSION: Please see below. Exam: MRI HIP WO CONTRAST RIGHT Date/Time of Exam: 04/18/2019 5:10 PM Reason For Exam: See Diagnosis. Diagnosis: Posterior pain of hip, right. Technique: MRI of the right hip was performed without the administration of intravenous contrast. Comparison: None. Findings: The exam is degraded by motion artifact. There is no evidence of an acute fracture, avascular necrosis or focal bony lesion. The hip joints are anatomically aligned. There is a mild degree of lateral acetabular hypertrophic change compatible with early degenerative changes. There is a physiologic amount of symmetric joint fluid. No paralabral cyst formation is identified. The pubic symphysis is anatomically aligned and demonstrates moderate degenerative changes. The sacroiliac joints are anatomically aligned and appear well-maintained. Mild degenerative disc desiccation is present involving the partially visualized lumbar spine. A mild degree of sacral Tarlov cystic changes are present. The pelvic musculature is symmetric without edema or significant atrophy. The pelvic and proximal femoral tendon origins and attachments appear intact. There is no abnormal bursal distention. There is a trace amount of nonspecific free pelvic fluid which is within the physiologic range. No significant subcutaneous soft tissue pathology is identified. IMPRESSION: 1. No acute osseous abnormality. 2. Mild degenerative changes involving the hips. 3. 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 [id number] us Shanika Bates COMPLIANCE DIRECTOR MR ORDERABLES Final Res ult documented in this encounter Visit Diagnoses Diagnosis Posterior pain of hip, right Posterior pain of hip, right documented in this encounter
--- OUTSIDE RECORDS SUMMARY | 2025-02-13 13:50 | XMS_ITS | Encounter Summary ---
Author Organization [facility] Address [address] [place] [address] Care Team Providers Care Sfdc Technical Architect Name Role Phone Unavailable Primary Care Provider Unavailabl e Encounter Details Date Type Department Care Team (Late st Contact Info) Description 12/18/2018 Lab Requisition [facility] General Laboratory Services [place] [address] [place] [phone] Richard Hoffmann MD [address], [place] [id number] Social History Tobacco Use Types Packs/Day Years Used Date Smoking Tobacco: Never Assessed Comments Unknown Sex and Gender Information Value Date Recorded Sex Assigned at Not on file 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 Gender Identity Not on file Sexual Orientation Not on file documented as of this encounter Plan of Treatment Not on file documented as of this encounter Procedures Procedure Name Priority Date/Time Associated Diagnosis Comments CBC WITH DIFFERENTIAL Routine 12/18/2018 9:15 PM CDT documented in this encounter Results * (ABNORMAL) CBC WITH DIFFERENTIAL (12/18/2018 9:15 PM CDT) WBC 7.5 4.0 - 10.0 K/uL 12/18/2018 10:46 PM CDT [facility] RBC 4.81 3.93 - 5.22 M/uL 12/18/2018 10:46 PM CDT [facility] HEMOGLOBIN 14.8 11.2 - 15.7 g/dL 12/18/2018 10:46 PM CDT [facility] HEMATOCRIT 44.7 34.1 - 44.9 % 12/18/2018 10:46 PM [facility] MCV 92.9 79.4 - 94.8 fL 12/18/2018 10:46 PM [facility] MCH 30.8 25.6 - 32.2 pg 12/18/2018 10:46 PM [facility] MCHC 33.1 32.2 - 35.5 g/dL 12/18/2018 10:46 PM [facility] RDW 13.5 11.0 - 14.5 % 12/18/2018 10:46 PM [facility] RDW-STDEV 44.5 36.9 - 56.9 fL 12/18/2018 10:46 PM [facility] PLATELETS 214 163 - 337 K/uL 12/18/2018 10:46 PM [facility] MPV 10.8 10.0 - 14.8 fL 12/18/2018 10:46 PM [facility] NEUTROPHILS 49 34 - 71 % 12/18/2018 10:46 PM [facility] LYMPHOCYTES 43 19 - 52 % 12/18/2018 10:46 PM [facility] MONOCYTES 6 5 - 13 % 12/18/2018 10:46 PM [facility] EOSINOPHILS 1 1 - 6 % 12/18/2018 10:46 PM [facility] BASOPHILS 0 0 - 1 % 12/18/2018 10:46 PM [facility] IMMATURE GRANULOCYTES 0 % 12/18/2018 10:46 PM [facility] NEUTROPHIL ABSOLUTE 3.66 1.56 - 6.13 K/uL 12/18/2018 10:46 PM [facility] LYMPHOCYTE ABSOLUTE 3.22 1.20 - 3.40 K/uL 12/18/2018 10:46 PM [facility] MONOCYTE ABSOLUTE 0.46(H) 0.24 - 0.36 K/uL 12/18/2018 10:46 PM [facility] EOSINOPHIL ABSOLUTE 0.10 0.04 - 0.36 K/uL 12/18/2018 10:46 PM [facility] BASOPHILS ABSOLUTE 0.03 0.01 - 0.08 K/uL 12/18/2018 10:46 PM CDT [facility] IMMATURE GRANULOCYTES ABSOLUTE 0.01 K/uL 12/18/2018 10:46 PM CDT [facility] Blood Collection / Unknown 12/18/2018 9:15 PM CDT 12/18/2018 10:40 PM CDT us Richard Hoffmann MD HEMATOLOGY ORDERABLES Final Res ult [facility] CLIA # [id number] [address] [place] [address] documented in this encounter Visit Diagnoses Not on filedocumented in this encounter
--- OUTSIDE RECORDS SUMMARY | 2025-02-13 13:50 | XMS_ITS | Encounter Summary ---
Author Organization [facility] Address [address] [place] [address] Care Team Providers Care Hydrology Professor Name Role Phone Unavailable Primary Care Provider Unavailabl e Encounter Details Date Type Department Care Team (Late st Contact Info) Description 12/18/2018 Lab Requisition [facility] Laboratory Services [place] [address] [place] [phone] Richard Hoffmann MD [address] [place], [place] [address] Social History Tobacco Use Types Packs/Day Years Used Date Smoking Tobacco: Never Assessed Comments Unknown Sex and Gender Information Value Date Recorded Sex Assigned at Not on file 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 Gender Identity Not on file Sexual Orientation Not on file documented as of this encounter Plan of Treatment Not on file documented as of this encounter Procedures Procedure Name Priority Date/Time Associated Diagnosis Comments SEDIMENTATION RATE Routine 12/18/2018 9: 15 PM CDT TSH Routine 12/18/2018 9:15 PM CDT COMPREHENSIVE METABOLIC PANEL Routine 12/18/2018 9:15 PM CDT documented in this encounter Results * SEDIMENTATION RATE (12/18/2018 9:15 PM CDT) ESR (SEDIMENTATION RATE) 4 0 - 20 mm/Hr 12/19/2018 8:36 PM CDT [facility] Blood Collection / Unknown 12/18/2018 9:15 PM CDT 12/18/2018 10:41 PM CDT us Richard Hoffmann MD HEMATOLOGY ORDERABLES Final Res ult [facility] LABORATORY SERVICES [facility] CLIA# [id number] [address] [place] [address] * COMPREHENSIVE METABOLIC PANEL (12/18/2018 9:15 PM CDT) SODIUM 139 136 - 145 mmol/L 12/18/2018 11:32 PM T [facility] POTASSIUM 3.8 3.5 - 5.1 mmol/L 12/18/2018 11:32 PM [facility] CHLORIDE 102 98 - 107 mmol/L 12/18/2018 11:32 PM [facility] CO2 25 22 - 29 mmol/L 12/18/2018 11:32 PM [facility] CALCIUM 10.0 8.6 - 10.0 mg/dL 12/18/2018 11:32 PM [facility] BUN 10 6 - 20 mg/dL 12/18/2018 11:32 PM [facility] CREATININE 0.72 0.51 - 0.95 mg/dL 12/18/2018 11:32 PM [facility] GLUCOSE 83 74 - 99 mg/dL 12/18/2018 11:32 PM [facility] TOTAL PROTEIN 7.5 6.6 - 8.7 g/dL 12/18/2018 11:32 PM [facility] ALBUMIN 4.7 3.5 - 5.2 g/dL 12/18/2018 11:32 PM [facility] BILIRUBIN TOTAL 0.3 0.0 - 1.2 mg/dL 12/18/2018 11:32 PM [facility] ALKALINE PHOSPHATASE 73 35 - 104 U/L 12/18/2018 11:32 PM [facility] AST 16 10 - 35 U/L 12/18/2018 11:32 PM [facility] ALT 12 10 - 35 U/L 12/18/2018 11:32 PM CDT [facility] GFR >60 >=60 mL/min/1.7 3 sq meter 12/18/2018 11:32 PM T [facility] Comment: eGFR has not been validated for use in the elderly (> 70 years of age), women, patients with serious co-morbid conditions, or persons with extremes of body size or muscle mass and should also be interpreted with caution in patients with acute kidney failure, dialysis dependent patients, patients reporting exceptional dietary intake (e.g. vegetarian diet, high protein diets, creatine supplementation), and patients with severe liver disease. Based on National Kidney Disease Education Program If patient is , please refer to the GFR result. GFR, >60 >=60 mL/min/1.7 3 sq meter 12/18/2018 11:32 PM T [facility] ANION GAP 12 12 - 20 mmol/L 12/18/2018 11:32 PM T [facility] Blood Collection / Unknown 12/18/2018 9:15 PM CDT 12/18/2018 11:10 PM CDT Richard Hoffmann MD CHEMISTRY ORDERABLES Final Resu lt Performing Organization Address City/[facility]/ZIP Co de Phone Number [facility] CLIA # [id number] [address] [place] [phone] * TSH (12/18/2018 9:15 PM CDT) TSH 2.08 0.27 - 4.20 uIU/mL 12/18/2018 11:32 PM CDT [facility] Blood Collection / Unknown 12/18/2018 9:15 PM CDT 12/18/2018 11:10 PM CDT Richard Hoffmann MD CHEMISTRY ORDERABLES Final Resu lt [facility] CLIA # [id number] [address] [place] [id number] documented in this encounter Visit Diagnoses Not on filedocumented in this encounter
--- OUTSIDE RECORDS SUMMARY | 2025-02-13 13:50 | XMS_ITS | Encounter Summary ---
Author Organization [email or web address] Address 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
--- OUTSIDE RECORDS SUMMARY | 2025-02-13 13:50 | XMS_ITS | Clinical Summary ---
Author Organization [facility] Address [address] Attn: Epic Prelude ADT LOREN LÓPEZ [address] Care Team Providers Care Boatbuilder Apprentice Wood Name Role Phone Fidencio Baez MD Primary Care Provider [phone] Allergies Active Allergy Reactions Criticality Noted Date Comments Sulfa (Sulfonamide Antibiotics) Anaphylaxis High Venom-Wasp Anaphylaxis High 10/21/2021 Medications ramin primrose/linoleic/g -lenic (PRIMROSE OIL ORAL) Take by mouth. Activ e calcium as carbonate (OS-MARIBETH) 1,250 mg (500 mg elemental) tabletIndications:V itamin D deficiency Take 1 Tablet (500 mg) by mouth daily. 90 Tablet 3 07/28/19 24 Active Additional Information Patient not taking.Reported on 01/12/2025 cholecalciferol 1,250 mcg (50,000 unit) CapsuleIndications: Vitamin D deficiency Take 1 Capsule (50,000 Units) by mouth every 7 days. 12 Capsule 3 10/31/19 24 Active gabapentin (NEURONTIN) 100 mg capsuleIndications: Chronic midline low back pain without sciatica,Bulging lumbar disc Take 1 Capsule (100 mg) by mouth 3 times daily. 90 Capsule 1 10/31/19 24 Active Additional Information Patient not taking.Reported on 12/28/2024 atorvastatin (LIPITOR) 20 mg tabletIndications:A ortic atherosclerosis Take 1 Tablet (20 mg) by mouth daily. 100 Tablet 3 11/01/19 24 Active Active Problems No known active problems Encounters Date Type Department Care Team Description 02/13/2025 External Device Data [facility] ABSTRACTION Provider, Abstract 02/12/2025 External Device Data [facility] ABSTRACTION Provider, Abstract 02/12/2025 External Device Data [facility] ABSTRACTION Provider, Abstract 02/05/2025 External Device Data [facility]STRACTION Provider, Abstract 01/18/[address] [place] [address] Fidencio Baez MD Provider Call 01/15/2025 External Device Data [facility] ABSTRACTION Provider, Abstract 01/15/2025 External Device Data [facility] ABSTRACTION Provider, Abstract 01/15/2025 External Device Data [facility] ABSTRACTION Provider, Abstract 01/12/2025 9:05 PM CDT - 01/12/2025 9:37 PM CDT Emergency [facility] Emergency Medicine [address] [place] [address] Noel Rodriguez MD Spider bite wound, undetermined intent, initial encounter (Primary Dx) Discharge Disposition: Home or Self Care 01/12/2025 Travel 01/09/[address] [place] [address] Fidencio Baez MD Results 01/02/2025 External Device Data STL ABSTRACTION Provider, Abstract 01/02/2025 External Device Data [facility] ABSTRACTION Provider, Abstract 12/31/2024 Results Follow-Up [address] [place] [address] Lou, Crystal Maida, FOOD BAGGING MACHINE OPERATOR IRON, TIBC, AND PERCENT SATURATION, VITAMIN D 25 HYDROXY, VITAMIN B12 LEVEL, Additional followed-up results: 5 12/28/2024 3:20 PM CDT Office Visit [address] [place] [address] Lou, Crystal Maida, FOOD BAGGING MACHINE OPERATOR Chronic abdominal pain (Primary Dx); Screening mammogram, encounter for; Dehydration; Fatigue, unspecified type; Tick bite of abdominal wall, initial encounter 12/11/[address] [place] [address] Fidencio Baez MD 11/14/2024 Results Follow-Up [facility] Rheumat[facility]- Jorge Moore [address] [place] [address] Mehrdad Rapp MD SJOGRENS SYNDROME-A EXTRACT NUCLEAR AB, SJOGRENS SYNDROME-B EXTRACT NUCLEAR AB, MARTINEZ IGG ANTIBODY, DNA (DS) AB, CRITHIDIA IFA W/REFLEX TITER from Last 3 Months Family History Medical History Relation Name Comments Colon Cancer Maternal Aunt Breast Cancer Neg Hx Relation Name Status Comments Maternal Aunt Other Social History Tobacco Use Types Packs/Day Years Used Date Smoking Tobacco: Every Day Cigarettes Smokeless Tobacco: Never Tobacco Cessation:Ready to Q uit: Not Asked; Counseling Given: Not Answered Alcohol Use Standard Drinks/Week Comments Not Currently 0 (1 standard drink = 0.6 oz pur e alcohol) Feeling Safe Answer Date Recorded Are you in a relationship wi th someone who hurts you emotionally and/or physically? No 01/12/2025 Comments No Sex and Gender Information Value Date Recorded Sex Assigned at Not on file Legal Sex Female 7:06 AM STILL CLEANER TUBE Gender Identity Not on file Sexual Orientation Not on file Last Filed Vital Signs Vital Sign Reading Time Taken Comments Blood Pressure 110/92 01/12/2025 9:15 PM CDT Pulse 77 01/12/2025 9:15 PM CDT Temperature 36.9 C (98.4 F) 01/12/2025 6:08 PM CDT Respiratory Rate 18 01/12/2025 9:15 PM CDT Oxygen Saturation 100% 01/12/2025 9:15 PM CDT Inhaled Oxygen Concentration - - Weight 74.4 kg (164 lb) 01/12/2025 6:08 PM CDT Height 167.6 cm (5' 6 ) 01/12/2025 6:08 PM CDT Body Mass Index 26.47 01/12/2025 6:08 PM CDT Plan of Treatment Health Maintenance Due Date Last Done Comments DTAP/TDAP/TD VACCINES (1 - Tdap) 1992 HEPATITIS B VACCINES (1 of 3 - 19+ 3-dose series) 1992 FIT/FOBT Q 1 year 2018 Flex Sig/CT Colonography Q 5 years 2018 ZOSTER VACCINE (1 of 2) 08/19/2023 COVID-19 Vaccine ( season) 02/19/202403/2021, 09/29/2020 Preventative Visit-Managed Medicaid 07/27/202407/26 BREAST CANCER SCREENING 08/09/2024 08/09/2023 INFLUENZA VACCINE (#1) 2025 , 07/23/2022, 07/23/2022 FIT-DNA Q 3 years 08/20/2025 08/20/2022 PAP SMEAR 02/10/2026 02/10/2023 Pre-Diabetes and Diabetes Screening 12/07/202712/06, 07/26/2023 CERVICAL CANCER SCREENING 02/11/2028 HPV/Cotest (21-29) 02/11/2028 02/10/2023 HPV/Cotest (30-65) 02/11/2028 02/10/2023 COLORECTAL SCREENING 08/31/2033 09/01/2023 Colorectal Cancer Screening 08/31/2033 Procedures Procedure Name Priority Date/Time Associated Diagnosis Comments CBC WITH DIFFERENTIAL Routine 12/28/2024 4:07 PM CDT Dehydration Fatigue, unspecified type COMPREHENSIVE METABOLIC PANEL Routine 12/28/2024 4:07 PM CDT Dehydration Fatigue, unspecified type VITAMIN B12 LEVEL Routine 12/28/2024 4:0 7 PM CDT Dehydration Fatigue, unspecified type VITAMIN D 25 HYDROXY Routine 12/28/2024 4:07 PM CDT Dehydration Fatigue, unspecified type IRON, TIBC, AND PERCENT SATURATION Routine 12/28/2024 4:07 PM CDT Dehydration Fatigue, unspecified type BENEDICT MTN SPOTTED FEVER AB IGG/IGM Routine 12/28/2024 4:07 PM CDT Tick bite of abdominal wall, initial encounter TICK-BORNE DISEASE AB PANEL W/REFLEX Routine 12/28/2024 4:07 PM CDT Tick bite of abdominal wall, initial encounter ALPHA-GAL PANEL Routine 12/28/2024 4:07 PM CDT Chronic abdominal pain LIPID PANEL Routine 12/06/2024 HEMOGLOBIN A1C Routine 12/06/2024 MAMMO 3D TIM DIAGNOSTIC BILAT W OR WO CAD Routine 08/09/2023 12:38 PM STILL CLEANER TUBE Breast pain CERV/VAG CYTO AGE BASED SCREEN PAP Routine 02/10/2023 3:00 PM CDT History of abnormal cervical Pap smear COLON CANCER SCREEN, STOOL DNA Routine 08/20/2022 1:30 PM STILL CLEANER TUBE Encounter for colorectal cancer screening from Last 3 Months or Most Recently Relevant to Health Maintenance Results * TICK-BORNE DISEASE AB PANEL W/REFLEX (12/28/2024 4:07 PM CDT) A.PHAGOCYTOPH IGG <1:64 [facility], A.PHAGOCYTOPH IGM <1:20 [facility], ANAPLASMA PHAGOCYTOPHILUM INTERP [facility]/ [facility], Comment: ANTIBODY NOT DETECTED REFERENCE RANGE: IgG <1:64 IgM <1:20 Anaplasma phagocytophilum is the tick-borne agent causing Human Granulocytic Ehrlichiosis (HGE). HGE is distinct and separate from Human Monocytic Ehrlichiosis (HME), caused by Ehrlichia chaffeensis. Serologic cross-reactivity between A. phagocytophilum and E. Chaffeensis is minimal (5-15%). This test was developed and its analytical performance characteristics have been determined by [facility]. It has not been cleared or approved by FDA. This assay has been validated pursuant to the CLIA regulations and is used for clinical purposes. BABESIA DUNCANI/WA1 IGG AB <1:256 [facility]/ [facility], Comment: REFERENCE RANGE: <1:256 INTERPRETIVE CRITERIA: <1:256 Antibody not detected > or = 1:256 Antibody detected Babesia duncani, also known as WA1, has been associated with symptoms similar to those caused by Babesia microti. Little, if any, cross-reactivity occurs between Babesia microti and WA1. This test was developed and its analytical performance characteristics have been determined by [facility]. It has not been cleared or approved by FDA. This assay has been validated pursuant to the CLIA regulations and is used for clinical purposes. BABESIA MICROTI IGG AB <1:64 titer [facility]/ [facility], BABESIA MICROTI IGM AB <1:20 titer [facility]/ [facility], BABESIA MICROTI INTERPRETATION [facility]/ [facility], Comment: ANTIBODY NOT DETECTED REFERENCE RANGES: IgG <1:64 IgM <1:20 Elevated antibody levels to B. microti indicate exposure to the organism. Human babesiosis infection is transmitted by the bite of an infected Ixodes tick or less frequently from transfusion with blood from an infected donor. Definitive diagnosis is made by identifying intraerythrocytic organisms in peripheral blood. In patients with low parasitemia, antibody detection by IFA is recommended. IgG levels greater than or equal to 1:1024 can be detected in acute phase patients with parasites in blood smears. The IFA assay can be used as a seroepidemiologic tool to study the frequency and distribution of B. microti in endemic areas especially in persons with mixed infections also involving Borrelia burgdorferi. This test was developed and its analytical performance characteristics have been determined by [facility]. It has not been cleared or approved by FDA. This assay has been validated pursuant to the CLIA regulations and is used for clinical purposes. LYME IGG, IGM AB <0.90 INDEX [facility]/ [facility], Comment: REFERENCE RANGE: <0.90 Index Interpretation < 0.90 NEGATIVE 0.90-1.09 EQUIVOCAL > 1.09 POSITIVE As recommended by the Food and Drug Administration (FDA), all samples with positive or equivocal results in a Borrelia burgdorferi antibody screen will be tested using a blot method. Positive or equivocal screening test results should not be interpreted as truly positive until verified as such using a supplemental assay (e.g., B. burgdorferi blot). The screening test and/or blot for B. burgdorferi antibodies may be falsely negative in early stages of Lyme disease, including the period when erythema migrans is apparent. EHRLICHIA CHAFFEENSIS IGG AB <1:64 [facility]/ [facility], EHRLICHIA CHAFFEENSIS IGM AB <1:20 [facility]/ [facility], EHRLICHIA CHAFFEENSIS INTERP [facility]/ [facility], Comment: ANTIBODY NOT DETECTED REFERENCE RANGE: IgG <1:64 IgM <1:20 Ehrlichia chaffeensis has been identified as the causative agent of Human Monocytic Ehrlichiosis (HME). Infected individuals produce specific antibodies to E. chaffeensis that can be detected by an immunofluorescent antibody (IFA) test. Single IgG IFA titers of 1:64 or greater indicate exposure to E. chaffeensis. A four-fold rise in IgG titers between acute and convalescent samples and/or the presence of IgM antibody against E. chaffeensis suggest recent or current infection. This test was developed and its analytical performance characteristics have been determined by [facility]. It has not been cleared or approved by FDA. This assay has been validated pursuant to the CLIA regulations and is used for clinical purposes. Test Performed at: [facility], [address] [place] [address] Rena Trejo MD,PhD,CAT[place] Blood 12/28/2024 4:07 PM CDT 12/29/2024 2:47 AM CDT Shy Blake FOOD BAGGING MACHINE OPERATOR CHEMISTRY ORDERABLES Fin al Result [facility] [phone] [facility], [address] [place] [address] * ALPHA-GAL PANEL (12/28/2024 4:07 PM CDT) ALLERGEN BEEF <0.10 kU/L [facility], ALLERGEN BEEF (F27) CLASS 0 [facility], LO (F88) IGE <0.10 kU/L [facility], ALLERGEN LO (F88) CLASS 0 [facility], ALLERGEN PORK <0.10 kU/L [facility], ALLERGEN PORK (F26) CLASS 0 [facility], GALACTOSE - ALPHA -1, 3 - GALACTOSE, IGE <0.10 <0.10 kU/L [facility], Comment: Results above 0.1 kU/L indicate an allergen-specific IgE sensitization to huhrvgjnw-o-2,3-galactose, and such patients are at risk for delayed allergic reactions following beef, pork, or lo consumption. Circulating IgE antibodies may remain undetectable despite a convincing clinical history because these antibodies may be directed towards allergens revealed or altered during industrial processing, cooking, or digestion and therefore do not exist in the original food for which the patient is tested. Sometimes individuals diagnosed with chronic urticaria may develop IgE antibodies directed against human thyroglobulin. Such antibodies may cross-react with the bovine thyroglobulin used in ImmunoCAP(R) Allergen o215, alpha-Gal, leading to a false-positive test result. A definitive diagnosis should be based on the evaluation of both clinical and laboratory findings and not on any single diagnostic method. Additional information can be found at [email or web address] ALLERGY PANEL INTERP [facility], Comment: Specific Level of Allergen IGE Class kU/L Specific IGE Antibody ----- --------- 0 <0.10 Absent/Undetectable 0/1 0.10-0.34 Very Low Level 1 0.35-0.69 Low Level 2 0.70-3.49 Moderate Level 3 3.50-17.4 High Level 4 17.5-49.9 Very High Level 5 50-100 Very High Level 6 >100 Very High Level The clinical relevance of allergen results of 0.10-0.34 kU/L are undetermined and intended for specialist use. Allergens denoted with a include results using one or more analyte specific reagents. In those cases, the test was developed and its analytical performance characteristics have been determined by [facility]. It has not been cleared or approved by the U.S. Food and Drug Administration. This assay has been validated pursuant to the CLIA regulations and is used for clinical purposes. Test Performed at: [facility], [address] [place] [phone] Rena Trejo MD,PhD,[place] Blood 12/28/2024 4:07 PM CDT 12/29/2024 2:47 AM CDT Shy Cheemas [facility] CHEMISTRY ORDERABLES Fin al Result Performing Organization Address [facility] Co de Phone Number [facility] [phone] [facility], [address] [place] [address] * [facility] SPOTTED FEVER IGG/IGM (12/28/2024 4:07 PM CDT) RMSF IGG NOT DETECTED [facility], RMSF IGM NOT DETECTED [facility], Comment: REFERENCE RANGE: NOT DETECTED Test Performed at: [facility]/[employer] [facility], [address] [place] [phone] Rena Trejo MD,PhD,[place] Blood 12/28/2024 4:07 PM CDT 12/29/2024 2:47 AM CDT Shy Blake [facility] CHEMISTRY ORDERABLES Fin al Result Performing Organization Address [facility] Co de Phone Number [facility] [phone] [facility], [address] [place], [place] [address], [place] [address] * IRON, TIBC, AND PERCENT SATURATION (12/28/2024 4:07 PM CDT) Pathologist [facility] IRON 83 45 - 160 mcg/dL [facility] TIBC 273 250 - 450 mcg/dL (calc) [facility] IRON % SATURATION 30 16 - 45 % (calc) [facility] Comment: Test Performed at: [facility] [address] [facility] [place] [address] Rosa Layne MD Blood 12/28/2024 4:07 PM CDT 12/29/2024 2:47 AM CDT Shy Blake FOOD BAGGING MACHINE OPERATOR CHEMISTRY ORDERABLES Fin al Result [facility] [phone] [facility] [address] [facility] [place] [address] * (ABNORMAL) CBC WITH DIFFERENTIAL (12/28/2024 4:07 PM CDT) Pathologist [facility] WBC 5.1 3.8 - 10.8 Thousand/u L [facility] RBC 5.09 3.80 - 5.10 Million/uL [facility] HEMOGLOBIN 14.8 11.7 - 15.5 g/dL [facility] HEMATOCRIT 46.5(H) 35.0 - 45.0 % [facility] MCV 91.4 80.0 - 100.0 fL [facility] MCH 29.1 27.0 - 33.0 pg [facility] MCHC 31.8(L) 32.0 - 36.0 g/dL [facility] Comment: For adults, a slight decrease in the calculated MCHC value (in the range of 30 to 32 g/dL) is most likely not clinically significant; however, it should be interpreted with caution in correlation with other red cell parameters and the patient's clinical condition. RDW 12.6 11.0 - 15.0 % [facility] PLATELETS 245 140 - 400 Thousand/u L [facility] MPV 10.8 7.5 - 12.5 fL [facility] NEUTROPHIL ABSOLUTE 2,734 1,500 - 7,800 cells/uL [facility] LYMPHOCYTE ABSOLUTE 1,938 850 - 3,900 cells/uL [facility] MONOCYTE ABSOLUTE 316 200 - 950 cells/uL [facility] EOSINOPHIL ABSOLUTE 71 15 - 500 cells/uL [facility] BASOPHILS ABSOLUTE 41 0 - 200 cells/uL [facility] NEUTROPHIL 53.6 % [facility] LYMPHOCYTES 38.0 % [facility] MONOCYTE 6.2 % [facility] EOSINOPHILS 1.4 % [facility] BASOPHILS 0.8 % [facility] Comment: Test Performed at: [facility] [id number] [place] [address] Rosa Layne MD Blood 12/28/2024 4:07 PM CDT 12/29/2024 2:47 AM CDT Shy Blake FOOD BAGGING MACHINE OPERATOR HEMATOLOGY ORDERABLES Fi nal Result [facility] [phone] [facility] [address] * VITAMIN D 25 HYDROXY (12/28/2024 4:07 PM CDT) VITAMIN D, 25 OH, TOTAL 46 30 - 100 ng/mL [facility] Comment: Vitamin D Status 25-OH Vitamin D: Deficiency: <20 ng/mL Insufficiency: 20 - 29 ng/mL Optimal: > or = 30 ng/mL For 25-OH Vitamin D testing on patients on D2-supplementation and patients for whom quantitation of D2 and D3 fractions is required, the Quest[facility](TM) 25-OH VIT D, (D2,D3), LC/MS/MS is recommended: order code 86816 (patients >2yrs). See Note 1 Note 1 For additional information, please refer to http://education.Tilck/faq/ZZD429 (This link is being provided for informational/ educational purposes only.) Test Performed at: [facility] [place] [address] JacklynLala Layne MD Blood 12/28/2024 4:07 PM CDT 12/29/2024 2:47 AM CDT [facility] CHEMISTRY ORDERABLES Fin al Result Performing Organization Address [facility] Co de Phone Number [facility] [phone] [facility] [address] * VITAMIN B12 LEVEL (12/28/2024 4:07 PM CDT) Pathologist [facility] VITAMIN B12 289 200 - 1100 pg/mL [facility] Comment: Please Note: Although the reference range for vitamin B12 is 200-1100 pg/mL, it has been reported that between 5 and 10% of patients with values between 200 and 400 pg/mL may experience neuropsychiatric and hematologic abnormalities due to occult B12 deficiency; less than 1% of patients with values above 400 pg/mL will have symptoms. Test Performed at: [facility] [address] Rosa Layne MD Blood 12/28/2024 4:07 PM CDT 12/29/2024 2:47 AM CDT [facility] CHEMISTRY ORDERABLES Fin al Result Performing Organization Address [facility]/ZIP Co de Phone Number [facility] [phone] [address] * COMPREHENSIVE METABOLIC PANEL (12/28/2024 4:07 PM CDT) Pathologist [facility] GLUCOSE 83 65 - 99 mg/dL [facility] Comment: Fasting reference interval BUN 9 7 - 25 mg/dL [facility] CREATININE 0.72 0.50 - 1.03 mg/dL [facility] GFR 101 > OR = 60 mL/min/1. 73m2 [facility] BUN/CREAT RATIO SEE NOTE: 6 - 22 (calc) [facility] Comment: Not Reported: BUN and Creatinine are within reference range. SODIUM 142 135 - 146 mmol/L [facility] POTASSIUM 4.2 3.5 - 5.3 mmol/L [facility] CHLORIDE 108 98 - 110 mmol/L [facility] CO2 27 20 - 32 mmol/L [facility] CALCIUM 9.4 8.6 - 10.4 mg/dL [facility] TOTAL PROTEIN 6.9 6.1 - 8.1 g/dL [facility] ALBUMIN 4.4 3.6 - 5.1 g/dL [facility] GLOBULIN 2.5 1.9 - 3.7 g/dL (calc) [facility] ALBUMIN/GLOBULIN RATIO 1.8 1.0 - 2.5 (calc) [facility] BILIRUBIN TOTAL 0.5 0.2 - 1.2 mg/dL [facility] ALKALINE PHOSPHATASE 64 37 - 153 U/L [facility] AST 11 10 - 35 U/L [facility] ALT 8 6 - 29 U/L [facility] Comment: Test Performed at: [facility] [address] [facility] [place] [address] Rosa Layne MD Blood 12/28/2024 4:07 PM CDT 12/29/2024 2:47 AM CDT Shy Blake FOOD BAGGING MACHINE OPERATOR CHEMISTRY ORDERABLES Fin al Result [facility] [phone] [facility] [address] [address] [facility] [place] [address] * HEMOGLOBIN A1C (12/06/2024) ABSTRACTED HGB A1C 5.4 % Blood 12/06/2024 us Abstract Provider CHEMISTRY ORDERABLES Final Res ult * LIPID PANEL (12/06/2024) ABSTRACTED CHOLESTEROL 175 ABSTRACTED TRIGLYCERIDE 138 ABSTRACTED HDL 41 ABSTRACTED LDL CALCULATED 106 Blood 12/06/2024 us Abstract Provider CHEMISTRY ORDERABLES Final Res ult * MAMMO 3D TIM DIAGNOSTIC BILAT W OR WO CAD (08/09/2023 12:38 PM STILL CLEANER TUBE) Anatomical Region Laterality Modality Breast Bilateral Mammography 08/09/2023 11:0 1 AM STILL CLEANER TUBE Narrative 08/09/2023 4:06 PM STILL CLEANER TUBE EXAMINATION: MAMMO 3D TIM DIAGNOSTIC BILAT W OR WO CAD, MAMMO BREAST US BILAT LTD INDICATION: 44-year-old patient presents with complaint of right palpable abnormality for the past year. She also reports manual dark green right nipple discharge. The patient is unsure of the specifics regarding her family history related to breast cancer. COMPARISON: 10/15/2019 back through 09/28/2016 FINDINGS: MAMMOGRAPHY: The breasts are heterogeneously dense, which may obscure small masses. There are no suspicious suspicious masses, calcifications, or areas of architectural distortion in the right breast. There are two adjacent asymmetries best seen in the superior aspect of the left breast, approximately 2.8 cm from the nipple. In spot compression images, these persist. ULTRASOUND OF THE RIGHT BREAST: Focused ultrasound at the 10:00 position 7 cm from the nipple in the region of the palpable abnormality demonstrates an anechoic ovoid cyst which measures up to 9.7 mm. No internal flow or posterior acoustic shadowing. Ultrasound of the subareolar region demonstrates an anechoic cyst at the 3:00 position. Minimally dilated ducts are noted in the subareolar region. No intraductal mass is seen. ULTRASOUND OF THE LEFT BREAST: Focused ultrasound at the 12:00 position 3 cm from the nipple demonstrates a benign anechoic cyst which measures up to 13 mm. Ultrasound of the left breast at the 12:00 position 2 cm from the nipple demonstrates a benign additional anechoic cyst which measures up to 6 mm. These findings correspond to the mammographic abnormalities. IMPRESSIONS: Multiple benign bilateral cysts. The palpable abnormality corresponds to a benign cyst. No concerning findings in the subareolar region of the right breast. Consider clinical management of green right-sided nipple discharge. BI-RADS 2. Benign findings. Resume annual screening mammography. Findings and verbal/written recommendations were conveyed to the patient after completion of the exam. [id number] Procedure Note Dyan Thomason, DO - 08/09/2023 EXAMINATION: MAMMO 3D TIM DIAGNOSTIC BILAT W OR WO CAD, MAMMO BREAST US BILAT LTD INDICATION: 44-year-old patient presents with complaint of right palpable abnormality for the past year. She also reports manual dark green right nipple discharge. The patient is unsure of the specifics regarding her family history related to breast cancer. COMPARISON: 10/15/2019 back through 09/28/2016 FINDINGS: MAMMOGRAPHY: The breasts are heterogeneously dense, which may obscure small masses. There are no suspicious suspicious masses, calcifications, or areas of architectural distortion in the right breast. There are two adjacent asymmetries best seen in the superior aspect of the left breast, approximately 2.8 cm from the nipple. In spot compression images, these persist. ULTRASOUND OF THE RIGHT BREAST: Focused ultrasound at the 10:00 position 7 cm from the nipple in the region of the palpable abnormality demonstrates an anechoic ovoid cyst which measures up to 9.7 mm. No internal flow or posterior acoustic shadowing. Ultrasound of the subareolar region demonstrates an anechoic cyst at the 3:00 position. Minimally dilated ducts are noted in the subareolar region. No intraductal mass is seen. ULTRASOUND OF THE LEFT BREAST: Focused ultrasound at the 12:00 position 3 cm from the nipple demonstrates a benign anechoic cyst which measures up to 13 mm. Ultrasound of the left breast at the 12:00 position 2 cm from the nipple demonstrates a benign additional anechoic cyst which measures up to 6 mm. These findings correspond to the mammographic abnormalities. IMPRESSIONS: Multiple benign bilateral cysts. The palpable abnormality corresponds to a benign cyst. No concerning findings in the subareolar region of the right breast. Consider clinical management of green right-sided nipple discharge. BI-RADS 2. Benign findings. Resume annual screening mammography. Findings and verbal/written recommendations were conveyed to the patient after completion of the exam. [id number] Yvonne Coledallas Magaña FOOD BAGGING MACHINE OPERATOR MAMMO ORDERABLES Final R esult * CERV/VAG CYTO AGE BASED SCREEN PAP (02/10/2023 3:00 PM CDT) COMMENT (PAP): [facility] [place] Comment: This order for age-based cervical cancer and STI screening follows ACOG guidelines(PB 168, 140, BSN243). See individual assays for performing site location. CLINICAL INFORMATION [facility] [place] Comment:Routine exam LAST MENSTRUAL PERIOD [facility] [place] Comment:NONE GIVEN PREV PAP: [facility] [place] Comment:NONE GIVEN PREV BX: [facility] [place] Comment:NONE GIVEN SOURCE [facility] [place] Comment:Endocervix ADEQUACY: [facility] [place] Comment: Satisfactory for evaluation. Endocervical/transformation zone component absent. PAP INTERP [facility] [place] Comment: Cytology Results: Negative for intraepithelial lesion or malignancy. COMMENT (PAP TEST) [facility] [place] Comment: This Pap test has been evaluated with computer assisted technology. BOOM SUPERVISOR: Leonard Biggs Comment: TMK, CT(ASCP) CT screening location: [place] [address] [place] [address] EXPLANATORY NOTE Que Dinora Biggs Comment: EXPLANATORY NOTE: The Pap is a screening test for cervical cancer. It is not a diagnostic test and is subject to false negative and false positive results. It is most reliable when a satisfactory sample, regularly obtained, is submitted with relevant clinical findings and history, and when the Pap result is evaluated along with historic and current clinical information. HPV E6/E7 Not Detected Not Detected [facility] Comment: Methodology: Heat And Vent Aircraft Mechanic-Mediated Amplification This assay detects E6/E7 viral messenger RNA (mRNA) from 14 high-risk HPV types (16,18,31,33,35,39,45,51,52,56,58,59,66,68). Cervical sources are required for HPV testing. If a vaginal source from a patient who has had a total hysterectomy with removal of cervix was submitted, please contact the testing laboratory for alternative testing options. For additional information, please refer to http://education.EverySignal/faq/PJA690n3 (This link if provided for information/ educational purposes only.) Test Performed at: [facility] [address] [place] [address] Rosa KEATING Genital SWAB OF ENDOCERVIX / Unknown 02/10/2023 3:00 PM CDT 02/11/2023 4:31 AM CDT Yvonne Magaña FOOD BAGGING MACHINE OPERATOR PATHOLOGY/CYTOLOGY ORDER MARIAN Final Result [facility] [phone] [facility] [address] [facility] [place] [address] * COLON CANCER SCREEN, STOOL DNA (08/20/2022 1:30 PM STILL CLEANER TUBE) COLOGUARD RESULT Negative Negative [facility] Comment: NEGATIVE TEST RESULT. A negative Cologuard result indicates a low likelihood that a colorectal cancer (CRC) or advanced adenoma (adenomatous polyps with more advanced pre-malignant features) is present. The chance that a person with a negative Cologuard test has a colorectal cancer is less than 1 in 1500 (negative predictive value >99.9%) or has an advanced adenoma is less than 5.3% (negative predictive value 94.7%). These data are based on a prospective cross-sectional study of 10,000 individuals at average risk for colorectal cancer who were screened with both Cologuard and colonoscopy. (Eran Topete al, N Engl J Med 2014;370(14):6488-3493) The normal value (reference range) for this assay is negative. COLOGUARD RE-SCREENING RECOMMENDATION: Periodic colorectal cancer screening is an important part of preventive healthcare for asymptomatic individuals at average risk for colorectal cancer. Following a negative Cologuard result, the [employer] Society and U.S. Multi-Society Task Force screening guidelines recommend a Cologuard re-screening interval of 3 years. References: [employer] Guideline for Colorectal Cancer Screening: https://www.cancer.org/cancer/ynjvs-nxsguo-eiftux/hcvslnzrh-mbuussbyd-bdgpykd/ac s-rec ommendations.html.; Jesus DK, Yonatan CONSTANTINO, Petey OsunaK, Colorectal Cancer Screening: Recommendations for Physicians and Patients from the U.S. Multi-Society Task Force on Colorectal Cancer Screening , Am J Gastroenterology 2017; 112:5848-7626. TEST DESCRIPTION: Composite algorithmic analysis of stool DNA-biomarkers with hemoglobin immunoassay. Quantitative values of individual biomarkers are not reportable and are not associated with individual biomarker result reference ranges. Cologuard is intended for colorectal cancer screening of adults of either sex, 45 years or older, who are at average-risk for colorectal cancer (CRC). Cologuard has been approved for use by the U.S. FDA. The performance of Cologuard was established in a cross sectional study of average-risk adults aged 50-84. Cologuard performance in patients ages 45 to 49 years was estimated by sub-group analysis of near-age groups. Colonoscopies performed for a positive result may find as the most clinically significant lesion: colorectal cancer [4.0%], advanced adenoma (including sessile serrated polyps greater than or equal to 1cm diameter) [20%] or non- advanced adenoma [31%]; or no colorectal neoplasia [45%]. These estimates are derived from a prospective cross-sectional screening study of 10,000 individuals at average risk for colorectal cancer who were screened with both Cologuard and colonoscopy. (Eran Garza et al, N Engl J Med 2014;370(14):0077-4139.) Cologuard may produce a false negative or false positive result (no colorectal cancer or precancerous polyp present at colonoscopy follow up). A negative Cologuard test result does not guarantee the absence of CRC or advanced adenoma (pre-cancer). The current Cologuard screening interval is every 3 years. ([employer] Cancer Society and U.S. Multi-Society Task Force). Cologuard performance data in a 10,000 patient pivotal study using colonoscopy as the reference method can be accessed at the following location: www.IActive/results. Additional description of the Cologuard test process, warnings and precautions can be found at www.cologuard.com. Stool STOOL SPECIMEN / Unknown 08/20/2022 1:30 PM STILL CLEANER TUBE 08/21/2022 6:06 PM STILL CLEANER TUBE us Cassidy Cain FOOD BAGGING MACHINE OPERATOR BODY FLUIDS AND STOOLS Final Res ult [employer] CLIA # [id number] [address] , [address] [place] [address] from Last 3 Months or Most Recently Relevant to Health Maintenance Insurance [place] [address] HEALTH PLAN MEDICAID Advance Directives For more information, please contact: [phone] * Full Code (Latest Code Status on File) Date Activated Date Inactivated Comments 09/01/2023 9:21 AM 09/01/2023 1:17 PM Care Teams Boatbuilder Apprentice Wood Relationship Specialty Start Date End Date Fidencio Baez MD [address] [address] PCP - General Family Practice 07/23/22
--- OUTSIDE RECORDS SUMMARY | 2025-02-13 13:50 | XMS_ITS | Encounter Summary ---
Author Organization [facility] Address 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
[2025-02-13 13:52] VITALS: BP 114/75; PULSE 82; RESP 16; O2SAT 98
--- NOTE | 2025-02-13 14:30 | XR_ITS ---
WS: [id number] Exam: XR lumbar spine 2-3V* 23500 Date/Time of Exam: 02/13/2025 2:30 PM Reason For Exam: fall No fracture or dislocation. Disc bases are preserved. Posterior elements are intact. Slight spondylosis. XR/XR lumbar spine 2-3V* 80250 IMPRESSION: 1. No fracture or malalignment.
--- NOTE | 2025-02-13 14:30 | XR_ITS ---
WS: [id number] Exam: XR sacrum coccyx min 2V 40859 Date/Time of Exam: 02/13/2025 2:30 PM Reason For Exam: fall No sacrococcygeal fracture. Mild DJD of the SI joints. No bone destructive changes. XR/XR sacrum coccyx min 2V 37884 IMPRESSION: 1. Mild DJD of the SI joints. No fracture or other significant finding.
--- NOTE | 2025-02-13 14:31 | W.ED.BACK ---
HPI - Back Pain/Injury General: Chief Complaint: Back Pain/Injury Stated Complaint: fall (4-6ft) Time Seen by Provider: 02/13/25 14:30 Source: patient Mode of arrival: ambulatory Limitations: no limitations History of Present Illness: Patient is a 49-year-old female presents to ED today with complaint of back pain. She states 4 days ago she accidentally fell from a 4 foot loading dock onto her bottom. She states it yazmin her back . She has been ambulatory since the fall but here today stating she continues to have discomfort and wants to make sure nothing is broken . She is not complaining of saddle anesthesia or bowel or bladder dysfunction. Again she has been ambulatory without difficulty or assistance. She complains of pain to her lower back and tailbone. States she is not having any discomfort to her hips. MD elicited complaint: back pain Pertinent past history: recent trauma Onset (ago): day(s) Timing: constant Severity: moderate Location: lumbar spine Radiation: none Exacerbating factors: walking and other (sitting) Relieving factors: none Context: fall Associated symptoms: Reports no associated symptoms; Deny abdominal pain, difficulty walking, fever(s) or hematuria Work related injury: No Related Data Home Medications ?Medication ?Instructions ?Recorded ?Confirmed herbal vitamins as directed 08/12/22 12/06/24 atorvastatin 10 mg tablet (Lipitor) 10 mg PO DAILY 12/06/24 12/06/24 epinephrine 0.15 mg/0.15 mL IM 12/06/24 12/06/24 auto-injector (for 33 to 66 lb patients) Allergies Allergy/AdvReac Type Severity Reaction Status Date / Time Sulfa (Sulfonamide Allergy ADR-Itching Verified 12/06/24 11:44 Antibiotics) venom-wasp Allergy ALGY-Anaphy Verified 12/06/24 11:44 laxis Review of Systems Const: Denies: fever(s) Card: Denies: chest pain Resp: Denies: dyspnea GI: Denies: abdominal pain : Denies: flank pain or hematuria Musc: Reports: back pain; Denies: neck pain, extremity pain, extremity swelling, joint pain, joint swelling or joint redness Skin/Breast: Denies: rash Neuro: Denies: headache(s), numbness in extremities, weakness in extremities, sensory changes or difficulty walking [facility] ED PFSH: Medical History Psychiatric care Surgical History Hx of hysterectomy History of surgical removal of lesion left side Dr. Araujo History of lumpectomy of right breast Dr. Ocampo Hx of appendectomy History of placement of ear tubes Family History Mother Cancer Hypertension Father Diabetes Other Hodgkins lymphoma Liver disease Social History Smoking and tobacco/nicotine status: current every day tobacco/nicotine user cigarettes Packs smoked per day: 2 Alcohol intake: former Substance/Drug Use: former Adopted: No Lives independently: No Household members: family Housing: House Marital status: Number of children: 5 Number of grandchildren: 8 Highest education level completed: 8th Grade service: No Current occupational status: disabled Current occupational exposures/hazards: No Pets and animals: Yes Pets & animals: cat(s) and dog(s) Leisure activites: other Leisure activities details: plays on her phone Sexually active: Yes Do you think of yourself as: Bisexual Current gender identity: Female Karyn/Pentecostalism: None Special karyn needs: No Agree to transfusion: Yes Female Reproductive History: Para: 5 Spontaneous abortions: No Physical Exam Const: COMMON NORMALS: no acute distress, average body habitus, patient oriented x3, no limitations, healthy appearing, alert and well nourished HENMT: COMMON NORMALS: normocephalic and atraumatic HEAD & SCALP: normal to inspection, normocephalic and atraumatic Neck/C-Spine: COMMON NORMALS: full ROM CERVICAL SPINE: No Cervical spine tenderness GI: COMMON NORMALS: Normal to inspection, nondistended, normoactive bowel sounds present, Soft to palpation and non-tender PALPATION: Yes Soft to palpation Back/Pelvis: COMMON NORMALS: thoracic and lumbar spine normal to inspection, thoraco-lumbar ROM normal and straight leg raise negative bilaterally LUMBAR SPINE/LOWER BACK: Yes paraspinal muscle tenderness Lumbar paraspinal muscle tenderness: left PELVIS: Yes buttocks normal and No sciatic notch tenderness SACROILIAC JOINTS: Yes SI joints normal SACRUM: tenderness COCCYX: Coccyx tenderness present Extremity: COMMON NORMALS: normal to inspection, full ROM and capillary refill normal GENERAL: Yes normal exam except as noted Neuro: COMMON NORMALS: patient oriented x3, moves all extremities, no focal motor deficits, no sensory deficits noted and gait normal SENSORIUM/ORIENTATION: Yes alert Skin: TRAUMA: no lacerations or abrasions Course Vital Signs: Vital signs: Vital Signs Pulse Rate 77 02/13/25 15:55 Respiratory Rate 16 02/13/25 15:55 Blood Pressure 129/69 02/13/25 15:55 Pulse Oximetry 99 02/13/25 15:55 Oxygen Delivery Me thod Room Air 02/13/25 13:52 MDM - Back Pain/Injury Medical Decision Making Radiology impression of patient's lumbar and sacrum/coccyx XR showing no acute fractures. Patient will be allowed discharge with continued conservative therapies. Recommend she follow-up with primary care in 2 weeks if symptoms are not improving. Medical Records I reviewed the patient's medical records. Labs Radiology Impressions Lumbar Spine X-Ray 02/13/25 14:30 IMPRESSION: 1. No fracture or malalignment. Sacrum and Coccyx X-Ray 02/13/25 14:30 IMPRESSION: 1. Mild DJD of the SI joints. No fracture or other significant finding. All radiology interpretation(s) finalized by discharge Discharge Plan Discharge Patient Disposition: Home Clinical Impression: Contusion of back Qualifiers: Encounter type: initial encounter Laterality: unspecified laterality Qualified Code(s): S20.229A - Contusion of unspecified back wall of thorax, initial encounter Condition: Stable Prescriptions: No Action herbal vitamins as directed atorvastatin [Lipitor] 10 mg tablet 10 mg PO DAILY epinephrine 0.15 mg/0.15 mL auto-injector IM Discharge Orders: Discharge ED (Routine); Ordered 02/13/25 Ordered By: Naina Patel Referrals: Yvonne Magaña [Primary Care Provider, Family Practice] Patient Instructions: Patient Portal & [place] Instructions Activity Restrictions/Additional Instructions: As we discussed, radiologist did not see any fractures involving your lower back, sacrum, or tailbone. We discussed conservative therapies including Tylenol, Motrin, continued time as well as ice/heat. You may follow-up with primary care in 2 weeks or so if symptoms are still not improving with conservative therapies. I hope you begin to feel better soon. Print Language: Hebrew Coding Level of Care Code ED Commercial Green Building Designer for Barbie Saul
[2025-02-13 15:55] VITALS: BP 129/69; PULSE 77; RESP 16; O2SAT 99
== END 2025-02-13 15:56 | disposition home or self-care (01) ==
PROVIDERS: Emergency Provider Physician Assistant; PCP Registered Nurse
DX: S20.229A Contusion of unspecified back wall of thorax, initial encounter (principal); F17.210 Nicotine dependence, cigarettes, uncomplicated; W17.89XA Other fall from one level to another, initial encounter
CPT/HCPCS: 72100; 72220; 99284